=== PATIENT | female | born 1940 | race Caucasian/White ===

== ENCOUNTER → 2016-10-07 | Day surgery (SDC) | payer MEDICARE, OTHER ==
[~2016-10-07] MED LIST: LIDOCAINE 2% VISCOUS 15 ML UDC ONE; LIDOCAINE 2% VISCOUS 15 ML UDC PO ONE; MIDAZOLAM 2 MG/2 ML (VERSED) VIAL IM ONE; MIDAZOLAM 2 MG/2 ML (VERSED) VIAL ONE; NS IV 1000 ML 1,000 ML IV SCH; NS IV 1000 ML 1,000 ML ONE; fentaNYL INJECTION 100 MCG/2 ML AMP IVP ONE; fentaNYL INJECTION 100 MCG/2 ML AMP ONE
[2016-10-07 09:41] LABS: MEAN PLATELET VOLUME 12.4 FL (7.4-10.4); RED BLOOD COUNT 4.95 10^6/uL (4.35-5.85); WHITE BLOOD COUNT 5.1 10^3/uL (4.3-11.0)
--- NOTE | 2016-10-07 09:45 | Diagnostic Imaging Report ---
INDICATION: Preoperative esophageal echo. TECHNIQUE: A frontal chest was obtained at 0938 hours. COMPARISON: 02/21/2016. FINDINGS: The heart is mildly enlarged. The mediastinal silhouette is unremarkable. The lungs are clear. There has been resolution of the previous right perihilar infiltrate visualized on 02/21/2016. IMPRESSION: Mild cardiomegaly. No acute process in the chest. Resolution of the previous infiltrate in the right perihilar region. Dictated by: Dictated on workstation # [id number]
[2016-10-07 09:52] LABS: INR 0.9 (0.8-1.4)
--- NOTE | 2016-10-07 09:58 | Cardiac Procedure Note-CS/ASA ---
Pre-Procedure Note Pre-Op Procedure Note H&P Reviewed The H&P was reviewed, patient examined and no changes noted. Date H&P Reviewed: October 07, 2016 Time H&P Reviewed: 09:57 Conscious Sedation Pre-Proced Time Reviewed: 09:58 ASA Class: 3 Airway Mallampati Classification: (red cliff appropriate class) I. II. III, IV Lungs Heart ASA score ASA 1: a normal healthy patient ASA 2: a patient with a mild systemic disease (mid diabetes, controlled hypertension, obesity x ASA 3: a patient with a severe systemic disease that limits activity (angina , COPD, prior Myocardial infarction) ASA 4: a patient with an incapacitating disease that is a constant threat to life (CHF, renal failure) ASA 5: a moribund patient not expected to survive 24 hrs. (ruptured aneurysm) ASA 6: a declared brain patient whose organs are being harvested. For emergent operations, add the letter E after the classification Grade 3 Sedation Plan: Analgesia, Amnesia, Plan communicated to team members, Discussed options with patient/fam, Discussed risks with patient/fam Note The patient is an appropriate candidate to undergo the planned procedure, sedation, and anesthesia. The patient immediately re-assessed prior to indication. ROSAS LAW MD October 07, 2016 09:58
[2016-10-07 10:01] LABS: ALANINE AMINOTRANSFERASE 21 U/L (0-55); ANION GAP 9 MMOL/L (5-14); ASPARTATE AMINO TRANSFERASE 24 U/L (5-34); BILIRUBIN,TOTAL 0.5 MG/DL (0.1-1.0); BLOOD UREA NITROGEN 11 MG/DL (7-18); BUN/CREATININE RATIO 15; CALCIUM 9.6 MG/DL (8.5-10.1); CARBON DIOXIDE 28 MMOL/L (21-32); CHLORIDE 103 MMOL/L (98-107); CREATININE SERUM 0.74 MG/DL (0.60-1.30); GFR ESTIMATED > 60; GLUCOSE 97 MG/DL (70-105); SODIUM 140 MMOL/L (135-145); TOTAL PROTEIN 7.4 G/DL (6.4-8.2)
[2016-10-07 10:24] VITALS: BP 130/99
[2016-10-07 10:46] VITALS: BP 150/63
[2016-10-07 10:51] VITALS: BP 140/72
[2016-10-07 11:45] VITALS: BP 135/86
--- NOTE | 2016-10-07 19:50 | DISCHARGE SUMMARY ---
DATE OF SERVICE: 10/07/2016 BRIEF HISTORY OF PRESENT ILLNESS: The patient is a 76-year-old lady with a history of mitral valve stenosis. She has been seeing Dr. Flowers and Dr. Lopez. She was referred for AMEE evaluation. She denied any chest pain or shortness of breath, denied any palpitation, pedal edema. Past medical history, physical examination, social history and family history were discussed in her history and physical exam. PROCEDURE NOTE: After I explained the procedure to the patient, all pros and cons were explained, all questions were answered. The patient signed the consent. Then she was placed in the left lateral decubitus position. Oropharynx was anesthetized using lidocaine. Conscious sedation achieved using Versed and fentanyl. Omniplane probe was introduced through the mouth to the esophagus, then to the stomach. Multiple views were obtained. At the end of the procedure, Omniplane probe was removed. No complication noted. FINDINGS: 1. The left ventricle is normal in size with normal contractility, estimated ejection fraction 60%. 2. The left atrium is dilated. Left atrial appendage is dilated. No clots or thrombus were seen. 3. The right atrium and right ventricle are normal in size. No clots or thrombus were seen. 4. Interatrial septum was evaluated using color Doppler flow and agitated saline. No shunt was noted. 5. Mitral valve is normal in morphology. Mild to moderate mitral regurgitation was noted. Doppler across the mitral valve estimated the valve area by pressure half-time to be 2.3 sq cm, which is mild aortic and mild mitral valve stenoses. 6. Aortic valve is trileaflet with normal opening and closing pattern. No significant aortic stenosis or regurgitation was seen. 7. Tricuspid valve is normal in morphology with mild tricuspid regurgitation noted by color Doppler flow. 8. Pulmonic valve is functioning normally. 9. Portion of the main pulmonary artery and pulmonary artery bifurcation appeared normal. 10. Aortic root portion of the aortic arch and descending aorta appeared normal. CONCLUSIONS: 1. Mild mitral valve stenosis. 2. Dilated left atrium and left atrial appendage. 3. Normal left ventricular size and systolic function, estimated ejection fraction 60%. DISCUSSION AND RECOMMENDATIONS: The patient will be monitored, then discharged home, follow up with her primary electromedical equipment technician. FINAL DIAGNOSES: 1. Mitral valve stenosis. 2. Hyperlipidemia. 3. Hypertension. Job ID: [id number] DocumentID: [id number] Dictated Date: 10/07/2016 10:44:44 Fire Behavior Analyst Date: 10/07/2016 19:50:00 Dictated By: ROSAS LAW MD
--- NOTE | 2016-10-08 08:13 | ECHOCARDIOGRAPHY REPORT ---
DATE OF SERVICE: 10/07/2016 PROCEDURE: TRANSESOPHAGEAL ECHOCARDIOGRAM BRIEF HISTORY OF PRESENT ILLNESS: The patient is a 76-year-old lady with a history of mitral valve stenosis. She has been seeing Dr. Flowers and Dr. Lopez. She was referred for AMEE evaluation. She denied any chest pain or shortness of breath. Denied any palpitation, pedal edema. Past medical history, physical examination, social history and family history were discussed in her history and physical exam. PROCEDURE NOTE: After I explained the procedure to the patient, all pros and cons were explained, all questions were answered. The patient signed the consent. Then she was placed in the left lateral decubitus position. Oropharynx was anesthetized using lidocaine. Conscious sedation achieved using Versed and fentanyl. Omniplane probe was introduced through the mouth to the esophagus, then to the stomach. Multiple views were obtained. At the end of the procedure, Omniplane probe was removed. No complication noted. FINDINGS: 1. The left ventricle is normal in size with normal contractility, estimated ejection fraction 60%. 2. The left atrium is dilated. Left atrial appendage is dilated. No clots or thrombus were seen. 3. The right atrium and right ventricle are normal in size. No clots or thrombus were seen. 4. Interatrial septum was evaluated using color Doppler flow and agitated saline. No shunt was noted. 5. Mitral valve is normal in morphology. Mild to moderate mitral regurgitation was noted. Doppler across the mitral valve estimated the valve area by pressure half-time to be 2.3 sq cm, which is mild aortic and mild mitral valve stenosis. 6. Aortic valve is trileaflet with normal opening and closing pattern. No significant aortic stenosis or regurgitation was seen. 7. Tricuspid valve is normal in morphology with mild tricuspid regurgitation noted by color Doppler flow. 8. Pulmonic valve is functioning normally. 9. Portion of the main pulmonary artery and pulmonary artery bifurcation appeared normal. 10. Aortic root, portion of the aortic arch and descending aorta appeared normal. CONCLUSIONS: 1. Mild mitral valve stenosis. 2. Dilated left atrium and left atrial appendage. 3. Normal left ventricular size and systolic function, estimated ejection fraction 60%. DISCUSSION AND RECOMMENDATIONS: The patient will be monitored, then discharge home. Follow up with her primary incident response specialist. Job ID: [id number] DocumentID: [id number] Dictated Date: 10/07/2016 10:44:44 Drying Room Supervisor Date: 10/07/2016 19:45:20 Dictated By: ROSAS LAW MD
== END ==
LOC: CATH 08:38
PROVIDERS: ATTEND Internal Medicine Cardiovascular Disease
DX: I34.2 Nonrheumatic mitral (valve) stenosis (principal); E78.5 Hyperlipidemia, unspecified; I10 Essential (primary) hypertension; Z79.899 Other long term (current) drug therapy
CPT/HCPCS: 36415; 71010; 80053; 85027; 85610; 85730; 87081; 93312; 93320; 93325

== ENCOUNTER → 2017-04-21 | Outpatient (CLI) | payer MEDICARE, OTHER ==
--- NOTE | 2017-04-21 12:14 | Diagnostic Imaging Report ---
PROCEDURE: US left lower extremity venous. TECHNIQUE: Multiple real-time grayscale images were obtained over the left lower extremity in various projections. Additional duplex Doppler and color Doppler images were also obtained. INDICATION: Left leg pain. The left lower extremity femoral popliteal deep venous system is widely patent. No deep or superficial thrombus. A thin elongated Caal's cyst measures a length of 3.4 cm with an AP depth of only 6 mm. No other mass or fluid collection. IMPRESSION: Negative for venous thrombus. Small Caal's cyst in the popliteal fossa. Dictated by: Dictated on workstation # [id number]
== END ==
LOC: RAD 11:12
PROVIDERS: ATTEND Nurse Practitioner Family
DX: M71.22 Synovial cyst of popliteal space [Baker], left knee (principal)

== ENCOUNTER 2018-08-18 12:13 | Inpatient (IN) | payer MEDICARE, OTHER ==
[2018-08-18] VITALS (16 sets, daily range): BP systolic 82–131; BP diastolic 45–100
[~2018-08-18] VITALS: Ht 152.4 cm; Wt 51.0 kg
[2018-08-18] MEDS ORDERED: NS IV 1000 ML 1,000 ML ONE (12:31)
[2018-08-18] MEDS ORDERED: DILTIAZEM 180 MG (CARDIZEM CD) CAP PO ONE (13:00)
[2018-08-18] MEDS ORDERED: NS IV 1000 ML 1,000 ML IV SCH (13:00)
--- NOTE | 2018-08-18 13:00 | NUR ---
RORY JUDGE SPOKE WITH ALEISHA WELSH AT THIS APPROXIMATE TIME TO REPORT FINDINGS OF EKG AND CMP RESULTS. FAXED OVER EKG AND CMP RESULTS TO DR. WINTERS'S OFFICE AT THIS APPROXIMATE TIME. Addendum: 08/18/18 at 1728 by MARI BHATIA RN OMAR SOLOMON APRN*
[2018-08-18 13:02] LABS: ALANINE AMINOTRANSFERASE 20 U/L (0-55); ALBUMIN 3.9 GM/DL (3.2-4.5); ALKALINE PHOSPHATASE 95 U/L (40-136); BILIRUBIN,TOTAL 0.4 MG/DL (0.1-1.0); BUN/CREATININE RATIO 24; CALCIUM 9.8 MG/DL (8.5-10.1); CARBON DIOXIDE 27 MMOL/L (21-32); CHLORIDE 101 MMOL/L (98-107); CREATININE SERUM 0.75 MG/DL (0.60-1.30); GFR ESTIMATED > 60; GLUCOSE 132 MG/DL (70-105); POTASSIUM 5.2 MMOL/L (3.6-5.0); SODIUM 136 MMOL/L (135-145); TOTAL PROTEIN 7.6 GM/DL (6.4-8.2)
--- NOTE | 2018-08-18 15:00 | NUR ---
RECEIVED TELEPHONE ORDER FROM DR. WINTERS TO ADMIT PATIENT TO ICU, DR. WINTERS STATES SHE WILL FAX ADMISSION ORDERS TO ICU. TRANSPORTED PATIENT UP TO ROOM ICU-8 VIA WHEELCHAIR ACCOMPANIED BY PATIENT'S TWO ADULT SONS. THIS RN GOT THE PATIENT SITUATED INTO BED AND GOWN, HOOKED UP AEROPLANE PILOT, AND OBTAINED VITAL SIGNS. GAVE REPORT TO RORY DENT.
[2018-08-18 15:32] LABS: BASOPHILS % (AUTO) 0 % (0-10); EOSINOPHILS % (AUTO) 0 % (0-10); HEMATOCRIT 44 % (35-52); HEMOGLOBIN 14.3 G/DL (11.5-16.0); LYMPHOCYTES # (AUTO) 0.9 X 10^3 (1.0-4.0); LYMPHOCYTES % (AUTO) 10 % (12-44); MEAN CORPUSCULAR HEMOGLOBIN 29 PG (25-34); MEAN CORPUSCULAR HGB CONC 33 G/DL (32-36); MEAN CORPUSCULAR VOLUME 89 FL (80-99); MEAN PLATELET VOLUME 12.1 FL (7.4-10.4); MONOCYTES # (AUTO) 0.3 X 10^3 (0.0-1.0); MONOCYTES % (AUTO) 3 % (0-12); NEUTROPHILS % (AUTO) 87 % (42-75); PLATELET COUNT 235 10^3/uL (130-400); RED CELL DISTRIBUTION WIDTH 14.7 % (10.0-14.5); WHITE BLOOD COUNT 9.2 10^3/uL (4.3-11.0)
[2018-08-18] MEDS ORDERED: ADENOSINE 6 MG/2 ML (ADENOCARD) VIAL IV ONE (15:33)
[2018-08-18] MEDS ORDERED: DILTIAZEM 25 MG/5 ML INJ (CARDIZEM) VIAL ONE (15:47)
[2018-08-18] MEDS ORDERED: DILTIAZEM 125 MG/25 ML IV (CARDIZEM) IV ONE (15:47)
[2018-08-18] MEDS ORDERED: NS (IVPB) 0 ML ONE (15:48)
--- NOTE | 2018-08-18 15:49 | Consultation-Cardiology ---
HPI-Cardiology Cardiology Consultation Date of Consultation 08/18/18 Date of Admission Time Seen by Provider: 15:44 Indication: atrial fibrillation HPI 77 years old lady with history of mitral valve stenosis, has been followed by Dr. Soares in the past. Woke up this morning with palpitation, felt her heart racing, seen by Dr. Dela Cruz then she was admitted after she was noted to be in atrial fibrillation with rapid ventricular response. Denied any chest pain, has been having palpitation feeling lightheaded. Denied any previous history of atrial fibrillation. No syncope or near syncopal episode. Has history of carotid stenosis and carotid endarterectomy in the remote past Home Medications & Allergies Allergies: Coded Allergies: No Known Drug Allergies (Unverified , 10/07/16) Home Medication List Reviewed: Yes RZV-Ajmpph-Rughth Hx Patient Social History Employed/Student: retired Recent Foreign Travel: No Past Medical History as described below Family Medical History Family Medical Hx noncontributory to her current condition Review of Systems Constitutional: see HPI, malaise, weakness EENTM: see HPI, no symptoms reported Respiratory: see HPI; No cough; dyspnea on exertion; No hemoptysis, No orthopnea, No phlegm, No short of breath, No stridor, No wheezing, No other Cardiovascular: see HPI; No chest pain, No edema, No Hx of Intervention; palpitations; No syncope, No vascular heart diseas, No other Gastrointestinal: no symptoms reported, see HPI Genitourinary: no symptoms reported, see HPI Musculoskeletal: no symptoms reported, see HPI Skin: no symptoms reported, see HPI Psychiatric/Neurological: No Symptoms Reported, See HPI Reviewed Test Results Reviewed Test Results Lab Laboratory Tests Test 08/18/18 12:38 08/18/18 15:26 Range/Units Sodium Level 136 135-145 MMOL/L Potassium Level 5.2 H 3.6-5.0 MMOL/L Chloride Level 101 98-107 MMOL/L Carbon Dioxide Level 27 21-32 MMOL/L Anion Gap 8 5-14 MMOL/L Blood Urea Nitrogen 18 7-18 MG/DL Creatinine 0.75 0.60-1.30 MG/DL Estimat Glomerular Filtration Rate > 60 BUN/Creatinine Ratio 24 Glucose Level 132 H 70-105 MG/DL Calcium Level 9.8 8.5-10.1 MG/DL Corrected Calcium 9.9 8.5-10.1 MG/DL Total Bilirubin 0.4 0.1-1.0 MG/DL Aspartate Amino Transf (AST/SGOT) 24 5-34 U/L Alanine Aminotransferase (ALT/SGPT) 20 0-55 U/L Alkaline Phosphatase 95 40-136 U/L Total Protein 7.6 6.4-8.2 GM/DL Albumin 3.9 3.2-4.5 GM/DL White Blood Count 9.2 4.3-11.0 10^3/uL Red Blood Count 4.94 4.35-5.85 10^6/uL Hemoglobin 14.3 11.5-16.0 G/DL Hematocrit 44 35-52 % Mean Corpuscular Volume 89 80-99 FL Mean Corpuscular Hemoglobin 29 25-34 PG Mean Corpuscular Hemoglobin Concent 33 32-36 G/DL Red Cell Distribution Width 14.7 H 10.0-14.5 % Platelet Count 235 130-400 10^3/uL Mean Platelet Volume 12.1 H 7.4-10.4 FL Neutrophils (%) (Auto) 87 H 42-75 % Lymphocytes (%) (Auto) 10 L 12-44 % Monocytes (%) (Auto) 3 0-12 % Eosinophils (%) (Auto) 0 0-10 % Basophils (%) (Auto) 0 0-10 % Neutrophils # (Auto) 8.0 H 1.8-7.8 X 10^3 Lymphocytes # (Auto) 0.9 L 1.0-4.0 X 10^3 Monocytes # (Auto) 0.3 0.0-1.0 X 10^3 Eosinophils # (Auto) 0.0 0.0-0.3 10^3/uL Basophils # (Auto) 0.0 0.0-0.1 10^3/uL Physical Exam Vital Signs Capillary Refill : Height, Weight, BMI Height: '" Weight: lbs. oz. kg; BMI Method: General Appearance: No Apparent Distress, WD/WN Eyes: Bilateral Eye Normal Inspection, Bilateral Eye PERRL, Bilateral Eye EOMI HEENT: PERRL/EOMI, TMs Normal, Normal ENT Inspection, Pharynx Normal Neck: Full Range of Motion, Normal Inspection, Non Tender, Supple, Carotid Bruit Respiratory: Chest Non Tender, Lungs Clear, Normal Breath Sounds, No Accessory Muscle Use, No Respiratory Distress Cardiovascular: No Edema, No JVD, Normal Peripheral Pulses, Systolic Murmur, Gallop/S3, Irregularly Irregular, Tachycardia Gastrointestinal: Normal Bowel Sounds, No Organomegaly, No Pulsatile Mass, Non Tender, Soft Back: Normal Inspection, No CVA Tenderness, No Vertebral Tenderness Extremity: Normal Capillary Refill, Normal Inspection, Normal Range of Motion, Non Tender, No Calf Tenderness, No Pedal Edema Neurologic/Psychiatric: Alert, Oriented x3, No Motor/Sensory Deficits, Normal Mood/Affect Skin: Normal Color, Warm/Dry Lymphatic: No Adenopathy A/P-Cardiology Admission Diagnosis Acute atrial fibrillation Tachycardia Mitral valve stenosis Palpitation Assessment/Plan Atrial fibrillation without ventricular response, given Adenosine 6 mg which showed episode of transient bradycardia with underlying atrial fibrillation. Patient will be started on Cardizem and IV fluids with close monitoring to her heart rate. [id number] score of 4, yearly risk of stroke without oral anticoagulation is 4 percent, patient cannot be on NOAC due to mitral valve stenosis, will need loading dose on Coumadin and Lovenox. Mitral valve stenosis, had a AMEE done in 2016, I'll repeat 2-D echocardiogram Hypothyroidism, followed and managed by primary care physician Palpitation secondary to atrial fibrillation Tachycardia secondary to atrial fibrillation ROSAS LAW MD Aug 18, 2018 15:49
[2018-08-18 15:59] LABS: ALANINE AMINOTRANSFERASE 20 U/L (0-55); ALBUMIN 3.8 GM/DL (3.2-4.5); ALKALINE PHOSPHATASE 93 U/L (40-136); BILIRUBIN,TOTAL 0.5 MG/DL (0.1-1.0); BUN/CREATININE RATIO 20; CALCIUM 9.6 MG/DL (8.5-10.1); CARBON DIOXIDE 25 MMOL/L (21-32); CHLORIDE 107 MMOL/L (98-107); GFR ESTIMATED > 60; GLUCOSE 115 MG/DL (70-105); POTASSIUM 5.2 MMOL/L (3.6-5.0); SODIUM 140 MMOL/L (135-145); TOTAL PROTEIN 7.3 GM/DL (6.4-8.2)
[2018-08-18] MEDS ORDERED: DILTIAZEM 25 MG/5 ML INJ (CARDIZEM) VIAL IVP ONE (16:00)
[2018-08-18] MEDS ORDERED: DILTIAZEM INJECTION 125 MG in NS (IVPB) 100 ML IV SCH (16:00)
--- NOTE | 2018-08-18 16:00 | NUR ---
ASHLEE DURANT Christ admitted to room CU8-1, with an admitting diagnosis of afib/aflutter, on 08/18/18 from via wheelchair, accompanied by staff/family.ASHLEE DURANT introduced to surroundings, call light, bed controls, phone, TV, temperature control, lights, meal times, smoking policy, visitor policy, side rail policy, bathrooms and showers. Patient Rights given to patient in the handbook. ASHLEE DURANT verbalizes understanding that [facility] is not responsible for the loss or damage to any personal effects or valuables that are kept in the patients posession during their hospitalization. The following Patient Care Plans were discussed with the pt: Discharge Planning. ASHLEE DURANT verbalizes understanding of Interdisciplinary Patient Education. Patient and/or family were informed about the Rapid Response Team and its purpose.
[2018-08-18] MEDS ORDERED: OMEG-109 PO (16:20)
[2018-08-18] MEDS ORDERED: ASPI-983 PO (16:20)
[2018-08-18] MEDS ORDERED: UBID200C16 PO (16:20)
[2018-08-18] MEDS ORDERED: CRAN450C PO (16:20)
[2018-08-18] MEDS ORDERED: C,E,1CAP2 PO (16:20)
[2018-08-18] MEDS ORDERED: LEVO25TA5 PO (16:20)
--- NOTE | 2018-08-18 16:21 | NUR ---
SPOKE WITH THE PATIENT ABOUT HER MEDICATIONS. SHE LISTED WHAT SHE IS TAKING. I VERIFIED THE PRESCRIPTION MEDICATION WITH [facility]: 08-12-18 LEVOTHYROXINE 25MCG DAILY #90 OTC MEDS SHE IS TAKING: ASPIRIN 81MG HS CRANBERRY DAILY FISH OIL 2 DAILY EYE VITAMIN DAILY CO Q 10 DAILY THE LIST OF MEDICATION ON THE CHART FROM DR. WINTERS'S OFFICE ALSO INCLUDE: GREEN TEA PRN VITAMIN D CALCIUM MTV RESVERATROL B 12 SHE STATES SHE IS NOT TAKING ANY OF THESE CURRENTLY, SEVERAL OF HER OTC SUPPLEMENTS WERE STOPPED DUE TO HIGH POTASSIUM. SHE STATES SHE WAS TOLD SHE CAN TAKE PLAIN CALCIUM, HERS HAD MAGNESIUM IN IT TOO, BUT SHE HAS NOT PURCHASED ANY YET AND HAS NOT STARTED THAT. SHE BELIEVES THERE ARE 1 OR 2 OTHER SUPPLEMENTS SHE IS CURRENTLY TAKING BUT SHE IS UNABLE TO THINK OF THEM AT THIS TIME.
--- NOTE | 2018-08-18 16:45 | NUR ---
1510- RECEIVED REPORT FROM MARI VALADEZ. PT. WAS ALREADY PLACED IN CU8 AND PLACED ON MONITOR. REPORT RECEIVED STATED PT. HAD BEEN TO DR. WINTERS'S OFFICE @1226 AND [facility] WAS BEATING FAST. VIANEY SEND PT. FOR OUTPATIENT HYDRATION. PT. WAS GIVEN 1000ML OF NS ET 180 MG PO CARDIZEM. PT. STILL IN AFIB/AFLUTTER. PT. IS A&O X4. 20 G HL TO L-AC NOTED.MONITOR SHOWED AFIB. PT. DENIES NEEDS AT THIS TIME. 1520 DR. LAW HERE TO SEE PT. ORDERS RECEIVED ADENOSINE 6MG IVP. EKG COMPLETED AND SHOWN TO JOINT FILLER. ADENOSINE GIVEN BY KLEVER VALADEZ WITH THIS RN, DR. LAW, ET CUT OUT STITCHER AT BEDSIDE. SEE EKG FOR RHYTHM CHANGE. 1545 REPORT GIVEN TO SHANE VALADEZ
--- NOTE | 2018-08-18 17:12 | History & Physicial ---
History of Present Illness History of Present Illness Date of Admission Aug 18, 2018 at 15:00 I consulted on this patient on 08/18/18 17:11 Attending Physician Barry Dela Cruz MD Admitting Physician Barry Dela Cruz MD Consult Allergies and Home Medications Allergies Coded Allergies: No Known Drug Allergies (Unverified , 10/07/16) Home Medications Aspirin 81 Mg Tablet.dr, 81 MG PO HS, (Reported) C,E,Zinc,Copper 24/Om3/Lut/Raymond 1 Each Capsule, 1 CAP PO DAILY, (Reported) Cranberry Fruit Concentrate 450 Mg Capsule, 450 MG PO DAILY, (Reported) Levothyroxine Sodium 25 Mcg Tablet, 25 MCG PO DAILY, (Reported) [place]-3 Fatty Acids/Fish Oil 1 Each Capsule, 2 CAP PO DAILY, (Reported) Ubidecarenone 200 Mg Capsule, 200 MG PO DAILY, (Reported) Past Zimbnlf-Lpnrmk-Ljfdyw Hx Patient Social History Employed/Student: retired Alcohol Use: Denies Use Recreational Drug Use: No Physical Abuse Screen: No Sexual Abuse: No Recent Foreign Travel: No Contact w/other who traveled: No Recent Hopitalizations: No Recent Infectious Disease Expo: No Immunizations Up To Date Date of Influenza Vaccine: Mar 09, 2018 Seasonal Allergies Seasonal Allergies: No Surgeries Yes Respiratory No Cardiovascular Yes (Afib/Aflutter 08/18/18) Neurological No Genitourinary No Gastrointestinal No Musculoskeletal No Endocrine History of Endocrine Disorders: Yes HEENT History of HEENT Disorders: No Cancer No Psychosocial History of Psychiatric Problem: No Integumentary History of Skin or Integumenta: No Blood Transfusions History of Blood Disorders: No Physical Exam Vital Signs Vital Signs - First Documented 08/18/18 12:20 Pulse 163 Resp 20 B/P (MAP) 110/58 Pulse Ox 100 O2 Delivery Room Air Capillary Refill : Less Than 3 Seconds Height, Weight, BMI Height: 5'0.00" Weight: 108lbs. 0.0oz. [id number]; 21.1 BMI Method: Assessment/Plan Assessment and Plan ATRIAL FIBRILLATION CAROTID ARTERY DISEASE HYPOTHYROIDISM Admission Diagnosis Admission Status: Inpatient Order (span 2 midnights) Clinical Quality Measures DVT/VTE Risk/Contraindication: Risk Factor Score Per Nursin RFS Level Per Nursing on Admit: 2=Moderate BARRY DELA CRUZ MD Aug 18, 2018 17:12
[2018-08-18] MEDS ORDERED: warFARin 5 MG (COUMADIN) TAB PO SCH (18:00)
[2018-08-18] MEDS: ENOXAPARIN 60 MG/0.6 ML (LOVENOX) SYR SC SCH (18:01)
[2018-08-18] MEDS: NS IV 1000 ML 1,000 ML IV SCH (19:51)
[2018-08-18] MEDS ORDERED: ENOXAPARIN 60 MG/0.6 ML (LOVENOX) SYR SC SCH (21:00)
[2018-08-19] VITALS (11 sets, daily range): BP systolic 97–126; BP diastolic 44–64
[2018-08-19] MEDS: NS IV 1000 ML 1,000 ML IV SCH (01:36)
[2018-08-19 04:20] LABS: HEMOGLOBIN 11.6 G/DL (11.5-16.0); MEAN PLATELET VOLUME 12.8 FL (7.4-10.4); RED CELL DISTRIBUTION WIDTH 14.6 % (10.0-14.5); WHITE BLOOD COUNT 4.8 10^3/uL (4.3-11.0)
[2018-08-19 04:33] LABS: INR 1.1 (0.8-1.4); PROTHROMBIN TIME PATIENT 14.2 SEC (12.2-14.7)
[2018-08-19 04:43] LABS: ALANINE AMINOTRANSFERASE 16 U/L (0-55); ALKALINE PHOSPHATASE 63 U/L (40-136); BILIRUBIN,TOTAL 0.4 MG/DL (0.1-1.0); BUN/CREATININE RATIO 20; CALCIUM 8.3 MG/DL (8.5-10.1); CARBON DIOXIDE 21 MMOL/L (21-32); CHLORIDE 111 MMOL/L (98-107); CREATININE SERUM 0.59 MG/DL (0.60-1.30); GFR ESTIMATED > 60; GLUCOSE 92 MG/DL (70-105); POTASSIUM 4.1 MMOL/L (3.6-5.0); SODIUM 141 MMOL/L (135-145); TOTAL PROTEIN 5.7 GM/DL (6.4-8.2)
[2018-08-19] MEDS: ENOXAPARIN 60 MG/0.6 ML (LOVENOX) SYR SC SCH (06:14)
--- NOTE | 2018-08-19 07:18 | Cardiology Progress Note ---
Subjective Date Seen by Provider: Aug 19, 2018 Time Seen by Provider: 07:15 Subjective/Events-last exam patient is in bed, feeling better. No new complaint. No chest pain. No palpitation. Converted back to sinus rhythm last night Review of Systems General: No Chills, No Night Sweats, No Fatigue, No Malaise, No Appetite, No Other HEENT: No Head Aches, No Visual Changes, No Eye Pain, No Ear Pain, No Dysphasia , No Sinus Congestion, No Post Nasal Drip, No Sore Throat, No Other Pulmonary: No Dyspnea, No Cough, No Pleuritic Chest Pain, No Other Cardiovascular: No: Chest Pain, Palpitations, Orthopnea, Paroxysmal Noc. Dyspnea, Edema, Lt Headedness, Other Objective-Cardiology Exam Last Set of Vital Signs Vital Signs 08/19/18 08/19/18 03:35 08:00 Temp 98.5 Pulse 64 Resp 12 B/P (MAP) 112/51 (71) Pulse Ox 99 O2 Delivery Room Air Capillary Refill : Less Than 3 Seconds I&O Intake and Output 08/19/18 00:00 Intake Total 1375 ml Output Total 950 ml Balance 425 ml Intake Oral 375 ml IV Total 1000 ml Output Urine Total 950 ml Daily Weight Change No General: Alert, Oriented X3, Cooperative HEENT: Atraumatic, PERRLA Neck: Supple, No JVD, No Thyromegaly Lungs: Clear to Auscultation, Normal Air Movement Heart: Regular Rate, Normal S1, Normal S2, Other (systolic murmur) Abdomen: Normal Bowel Sounds, Soft, No Tenderness, No Hepatosplenomegaly, No Masses Extremities: No Clubbing, No Cyanosis, No Edema, Normal Pulses, No Tenderness/ Swelling Skin: No Rashes, No Breakdown, No Significant Lesion Neuro: Normal Gait, Normal Speech, Strength at 5/5 X4 Ext, Normal Tone, Sensation Intact Psych/Mental Status: Mental Status NL, Mood NL Results Lab Laboratory Tests 08/18/18 12:38 08/18/18 15:26 08/19/18 03:45 A/P-Cardiology Admission Diagnosis Acute atrial fibrillation Tachycardia Mitral valve stenosis Palpitation Assessment/Plan Paroxysmal atrial fibrillation, echo showed large left atrium, she is known to have mitral valve stenosis, did not show significant stenosis on the echo while she was tachycardic with a heart rate 140. I will repeat echo now and reevaluate the mitral valve area. Start amiodarone and low-dose beta blockers and evaluate tolerance and response [id number] score of 4, yearly risk of stroke without oral anticoagulation is 4 percent, patient cannot be on NOAC due to mitral valve stenosis, will need loading dose on Coumadin and Lovenox, patient is requesting to use medication other than Coumadin. I will reevaluate 2-D echo prior to switch her to another medication Mitral valve stenosis, had a AMEE done in 2017, I'll repeat 2-D echocardiogram today to reevaluate the mitral valve area while heart rate is better controlled Hypothyroidism, followed and managed by primary care physician Palpitation secondary to atrial fibrillation, better at this time Tachycardia secondary to atrial fibrillation, better at this time Addendum on August 19, 2018 at 9 a.m. Patient was noted to have moderate mitral valve stenosis with valve area of 1.6 cm, left atrial enlargement measuring 4.8 cm. It is considered valvular atrial fibrillation she will be on Coumadin and Lovenox. Monitor INR closely. Started on amiodarone and low-dose beta blockers. We'll monitor. Discussed with Dr. Dela Cruz and patient will be discharged today Clinical Quality Measures DVT/VTE Risk/Contraindication: Risk Factor Score Per Nursin RFS Level Per Nursing on Admit: 2=Moderate ROSAS LAW MD Aug 19, 2018 07:18
[2018-08-19] MEDS ORDERED: AMIODARONE FOR BOLUS 150 MG in D5W 100 ML IVPB 100 ML IV NR (07:25)
[2018-08-19] MEDS ORDERED: METO-387 PO (08:19)
--- NOTE | 2018-08-19 08:31 | Discharge Inst-Simple/Standard ---
Discharge Inst-Standard Discharge Medications New, Converted or Re-Newed RX: Transmitted to Pharmacy Patient Instructions/Follow Up Plan of Care/Instructions/FU: appt with [facility] - both doctors in one week from discharge. get labs done on wednesday per dr. barney's instructions. if you have questions about when/where to have labs - call dr. lawler or ector's office on wednesday morning. take ALL medication as directed Activity as Tolerated: Yes Discharge Diet: Regular Diet Return to The Hospital For: any concern for lifethreatening illness, injury, uncontrolled heart rate, bleeding that is excessive, chest pain, shortness of breath, GI bleeding. Planned Outpatient Orders/Ref. Pneu Vac Indicated: Yes BARRY LAWLER MD Aug 19, 2018 08:31
[2018-08-19] MEDS ORDERED: AMIODARONE 200 MG (CORDARONE) TAB PO SCH (09:00)
[2018-08-19] MEDS ORDERED: WARF4TAB PO (09:04)
[2018-08-19] MEDS ORDERED: ENOX80DI12 SQ (09:04)
[2018-08-19] MEDS ORDERED: AMIO200T4 PO (09:04)
[2018-08-19] MEDS ORDERED: ENOXAPARIN 30 MG/0.3 ML (LOVENOX) SYR SC ONE (09:30)
--- NOTE | 2018-08-19 10:09 | Discharge Summary ---
Diagnosis/Chief Complaint Date of Admission Aug 18, 2018 at 15:00 Date of Discharge Discharge Date: Aug 19, 2018 Discharge Time: 1200 Discharge Summary Discharge Physical Examination Allergies: Coded Allergies: No Known Drug Allergies (Unverified , 10/07/16) Vitals & I&Os Vital Signs Date Time Temp Pulse Resp B/P (MAP) Pulse Ox O2 Delivery O2 Flow Rate FiO2 08/19/18 09:00 61 48 126/46 (72) Room Air 08/19/18 08:00 99 08/19/18 03:35 98.5 General Appearance: Alert, Oriented X3, Cooperative HEENT: Atraumatic, PERRLA Respiratory: Clear to Auscultation, Normal Air Movement Cardiovascular: Regular Rate, Normal S1, Normal S2, Other (systolic murmur) Abdominal: Normal Bowel Sounds, Soft, No Tenderness, No Hepatosplenomegaly, No Masses Extremities: No Clubbing, No Cyanosis, No Edema, Normal Pulses, No Tenderness/ Swelling Skin: No Rashes, No Breakdown, No Significant Lesion Neuro: Normal Gait, Normal Speech, Strength at 5/5 X4 Ext, Normal Tone, Sensation Intact Psych/Mental Status: Mental Status NL, Mood NL Hospital Course Pending Labs Laboratory Tests 08/19/18 03:45: White Blood Count 4.8, Red Blood Count 4.03, Hemoglobin 11.6, Hematocrit 36, Mean Corpuscular Volume 90, Mean Corpuscular Hemoglobin 29, Mean Corpuscular Hemoglobin Concent 32, Red Cell Distribution Width 14.6, Platelet Count 188, Mean Platelet Volume 12.8, Prothrombin Time 14.2, INR Comment 1.1, Sodium Level 141, Potassium Level 4.1, Chloride Level 111, Carbon Dioxide Level 21, Anion Gap 9, Blood Urea Nitrogen 12, Creatinine 0.59, Estimat Glomerular Filtration Rate > 60, BUN/Creatinine Ratio 20, Glucose Level 92, Calcium Level 8.3, Corrected Calcium 9.1, Total Bilirubin 0.4, Aspartate Amino Transf (AST/SGOT) 19 , Alanine Aminotransferase (ALT/SGPT) 16, Alkaline Phosphatase 63, Total Protein 5.7, Albumin 3.0 Discharge Instructions to patient/family Please see electronic discharge instructions given to patient. Discharge Medications Reviewed and agree with Discharge Medication list on patient's Discharge Instruction sheet Clinical Quality Measures DVT/VTE Risk/Contraindication: Risk Factor Score Per Nursin RFS Level Per Nursing on Admit: 2=Moderate BARRY WINTERS MD Aug 19, 2018 10:09
== END 2018-08-19 10:52 | disposition home or self-care (01) | DRG 310 ==
LOC: SDC 12:13 → ICU 15:00
PROVIDERS: ADMIT Family Medicine; ATTEND Family Medicine
DX: I48.0 Paroxysmal atrial fibrillation (principal); I34.0 Nonrheumatic mitral (valve) insufficiency; I25.10 Atherosclerotic heart disease of native coronary artery without angina pectoris; E03.9 Hypothyroidism, unspecified
CPT/HCPCS: 36415; 80053; 84484; 85025; 85027; 85610; 85730; 87081; 93005; 93306; 93308

== ENCOUNTER → 2018-11-09 | Outpatient (CLI) | payer MEDICARE, OTHER ==
[~2018-11-09] VITALS: Ht 152.4 cm; Wt 50.3 kg
[~2018-11-09] MED LIST changes: +AMIO200T4 PO; +ASPI-983 PO; +C,E,1CAP2 PO; +CATHETER FLUSH 10 ML SYR IV PRN; +CRAN450C PO; +ENOX80DI12 SQ; +LEVO25TA5 PO; -LIDOCAINE 2% VISCOUS 15 ML UDC ONE; -LIDOCAINE 2% VISCOUS 15 ML UDC PO ONE; +METO-387 PO; -MIDAZOLAM 2 MG/2 ML (VERSED) VIAL IM ONE; -MIDAZOLAM 2 MG/2 ML (VERSED) VIAL ONE; -NS IV 1000 ML 1,000 ML IV SCH; -NS IV 1000 ML 1,000 ML ONE; +OMEG-109 PO; +REGADENOSON 0.4 MG/5 ML SYR (LEXISCAN) IV ONE; +UBID200C16 PO; +WARF4TAB PO; -fentaNYL INJECTION 100 MCG/2 ML AMP IVP ONE; -fentaNYL INJECTION 100 MCG/2 ML AMP ONE
--- NOTE | 2018-11-09 14:58 | STRESS TEST ---
DATE OF SERVICE: 11/09/2018 LEXISCAN MYOVIEW STRESS TEST REPORT REFERRING PHYSICIAN: Hyacinth Dela Cruz MD. Baseline heart rate is 62, baseline blood pressure 165/56. Baseline EKG is sinus rhythm with no ischemic changes. In summary, the patient was injected with 10.18 mCi of technetium-99 Myoview and the resting images were obtained. Then, the patient received 0.4 mg of Lexiscan followed by 29.5 mCi of technetium-99 Myoview. Throughout the test, there were no EKG changes. The resting and stress images were reviewed and compared in the short axis, horizontal long axis, and vertical long axis views. Review of the images showed good radiotracer uptake with no significant ischemia or infarction. SSS is 1, SDS 1, TID value 1.04. On the gated images, the left ventricle appeared to be normal size with normal contractility. Calculated ejection fraction is 68%. CONCLUSION: 1. The patient tolerated Lexiscan well. 2. No significant ischemia or infarction on SPECT images. 3. Normal left ventricular size with normal contractility. Calculated ejection fraction is 68%. Job ID: [id number] DocumentID: [id number] Dictated Date: 11/09/2018 14:34:10 Creative Producer Date: 11/09/2018 14:57:17 Dictated By: ROSAS LAW MD
== END ==
LOC: CARD 07:39
PROVIDERS: ATTEND Physician Assistant
DX: I48.2 Chronic atrial fibrillation (principal); I10 Essential (primary) hypertension; R00.2 Palpitations; I05.0 Rheumatic mitral stenosis; E03.9 Hypothyroidism, unspecified
CPT/HCPCS: 78452; 93017

== ENCOUNTER 2020-01-05 20:37 | Inpatient (IN) | payer MEDICARE, OTHER ==
[~2020-01-05] VITALS: Ht 152.4 cm; Wt 50.3 kg
[~2020-01-05 20:37] MED LIST changes: -CATHETER FLUSH 10 ML SYR IV PRN; -METO-387 PO; +MTP25TSR PO; -REGADENOSON 0.4 MG/5 ML SYR (LEXISCAN) IV ONE
[2020-01-05] MEDS ORDERED: dilTIAZem DRIP PRE-MIX 125 ML IV ONE (20:58)
[2020-01-05] MEDS ORDERED: NS IV 1000 ML 1,000 ML ONE (20:59)
[2020-01-05] MEDS ORDERED: NS IV 1000 ML 1,000 ML IV SCH (21:01)
[2020-01-05] MEDS: dilTIAZem DRIP PRE-MIX 125 ML IV SCH (21:10)
[2020-01-05 21:40] LABS: BASOPHILS % (AUTO) 0 % (0-10); EOSINOPHILS # (AUTO) 0.1 10^3/uL (0.0-0.3); EOSINOPHILS % (AUTO) 1 % (0-10); HEMATOCRIT 37 % (35-52); LYMPHOCYTES # (AUTO) 2.3 X 10^3 (1.0-4.0); LYMPHOCYTES % (AUTO) 25 % (12-44); MEAN CORPUSCULAR HEMOGLOBIN 30 PG (25-34); MEAN CORPUSCULAR HGB CONC 33 G/DL (32-36); MEAN CORPUSCULAR VOLUME 92 FL (80-99); MEAN PLATELET VOLUME 13.3 FL (7.4-10.4); MONOCYTES # (AUTO) 0.9 X 10^3 (0.0-1.0); MONOCYTES % (AUTO) 10 % (0-12); NEUTROPHILS # (AUTO) 5.8 X 10^3 (1.8-7.8); NEUTROPHILS % (AUTO) 64 % (42-75); PLATELET COUNT 234 10^3/uL (130-400); RED CELL DISTRIBUTION WIDTH 14.6 % (10.0-14.5); WHITE BLOOD COUNT 9.1 10^3/uL (4.3-11.0)
[2020-01-05 21:43] LABS: ALBUMIN 3.9 GM/DL (3.2-4.5); CHLORIDE 100 MMOL/L (98-107); POTASSIUM 3.1 MMOL/L (3.6-5.0); SODIUM 137 MMOL/L (135-145)
[2020-01-05 21:44] LABS: CALCIUM 9.2 MG/DL (8.5-10.1)
[2020-01-05 21:45] LABS: GLUCOSE 146 MG/DL (70-105)
[2020-01-05 21:47] LABS: BILIRUBIN,TOTAL 0.4 MG/DL (0.1-1.0); CARBON DIOXIDE 23 MMOL/L (21-32)
[2020-01-05 21:49] LABS: ALKALINE PHOSPHATASE 173 U/L (40-136); CREATININE SERUM 1.33 MG/DL (0.60-1.30); GFR ESTIMATED 39
[2020-01-05 21:50] LABS: BUN/CREATININE RATIO 13
[2020-01-05 21:52] LABS: ALANINE AMINOTRANSFERASE 95 U/L (0-55); MAGNESIUM 1.6 MG/DL (1.6-2.4)
[2020-01-05 21:58] LABS: INR 1.2 (0.8-1.4); PROTHROMBIN TIME PATIENT 15.1 SEC (12.2-14.7)
[2020-01-05] MEDS ORDERED: LORazepam INJ 2 MG/ML (ATIVAN) VIAL IVP ONE (22:00)
--- NOTE | 2020-01-05 22:07 | Diagnostic Imaging Report ---
INDICATION: Chest pain. COMPARISON STUDY: Chest from 10/07/2016. FINDINGS: Frontal view of the chest demonstrates the heart size to have increased with development of mild congestion. A small right pleural effusion with adjacent atelectasis is present. IMPRESSION: Congestive heart failure. Dictated by: Dictated on workstation # [id number]
--- NOTE | 2020-01-05 22:13 | ED Cardiac General ---
History of Present Illness General Chief Complaint: Cardiac/General Problems Stated Complaint: HIGH HEART RATE / SWELLING IN FEET/LEGS Nursing Triage Note: FAST HEART RATE. STARTED TONIGHT. HAVING OFF AND ON THE PAST THREE WEEKS. CLEANER WINDOW IN [place] HAS BEEN CHANGING MEDICATIONS AROUND. INCREASE SWELLING IN BILATERAL LOWER EXTREMETIES. 2+ EDEMA BILATERALLY. PLACED ON MONITOR. PHYSICIAN CALLED TO ROOM. HEART RATE 181. Source: patient, old records Exam Limitations: no limitations History of Present Illness Date Seen by Provider: Jan 05, 2020 Time Seen by Provider: 20:54 Initial Comments This 79-year-old woman with history of atrial fibrillation presents to the emergency room with tachycardia of around 180 bpm. She noticed swelling of her legs yesterday and racing of her heart has been ongoing today. She is anticoagulated with a Eliquis 2.5 mg twice a day. She has had both doses today. She is not having chest pain but does feel little short of breath. She has had multiple medication changes recently in relation to rhythm control. 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 Malin but she has an appointment with Dr. Vazquez to establish cardiology care in [place]. Her primary care provider is Dr. Dela Cruz. Allergies and Home Medications Allergies Coded Allergies: No Known Drug Allergies (Unverified , 10/07/16) Home Medications Apixaban 2.5 Mg Tablet, 2.5 MG PO BID, (Reported) Cholecalciferol (Vitamin D3) 50 Mcg Capsule, 50 MCG PO HS, (Reported) Diltiazem HCl 120 Mg Cap.er.24h, 120 MG PO DAILY, (Reported) Furosemide 20 Mg Tablet, 20 MG PO NEEDED, (Reported) Levothyroxine Sodium 25 Mcg Tablet, 25 MCG PO DAILY, (Reported) [place]-3 Fatty Acids/Fish Oil 1 Each Capsule, 2 CAP PO DAILY, (Reported) [place]-3/Dha/Epa/Fish Oil 1 Each Capsule, 1 EACH PO HS, (Reported) Potassium Chloride 10 Meq Tab.er.prt, 10 MEQ PO NEEDED, (Reported) Patient Home Medication List Home Medication List Reviewed: Yes Review of Systems Review of Systems Constitutional: no symptoms reported EENTM: No Symptoms Reported Respiratory: See HPI Cardiovascular: See HPI Gastrointestinal: No Symptoms Reported Genitourinary: No Symptoms Reported Musculoskeletal: no symptoms reported Skin: no symptoms reported Psychiatric/Neurological: No Symptoms Reported Endocrine: No Symptoms Reported Hematologic/Lymphatic: No Symptoms Reported Past Omhqrmj-Kftkoj-Gmrgwe Hx Past Med/Social Hx: Reviewed Nursing Past Med/Soc Hx Patient Social History Alcohol Use: Denies Use Recreational Drug Use: No Smoking Status: Never a Smoker 2nd Hand Smoke Exposure: No Recent Foreign Travel: No Contact w/Someone Who Travel: No Recent Infectious Disease Expo: No Recent Hopitalizations: No Physical Abuse: No Sexual Abuse: No Mistreated: No Fear: No Immunizations Up To Date Date of Influenza Vaccine: Mar 09, 2018 Seasonal Allergies Seasonal Allergies: No Past Medical History Surgeries: Yes (NECK ) Respiratory: No Cardiac: Yes (Afib/Aflutter 08/18/18) Neurological: No Genitourinary: No Gastrointestinal: No Musculoskeletal: No Endocrine: Yes HEENT: No Cancer: No Psychosocial: No Integumentary: No Blood Disorders: No Family Medical History Hypertension Physical Exam Vital Signs Vital Signs - First Documented 01/05/20 01/05/20 20:48 21:38 Temp 37.2 Pulse 181 Resp 19 B/P (MAP) 157/112 (127) Pulse Ox 92 O2 Delivery Room Air O2 Flow Rate 2.00 Capillary Refill : Less Than 3 Seconds Height, Weight, BMI Height: 5'0.00" Weight: 111lbs. 0.0oz. 50.777684xl; 38386.00 BMI Method: General Appearance: No Apparent Distress, WD/WN HEENT: PERRL/EOMI, Normal ENT Inspection Neck: Full Range of Motion Respiratory: No Accessory Muscle Use, No Respiratory Distress, Crackles ( bibasilar) Cardiovascular: No Murmur, Irregularly Irregular, Tachycardia Gastrointestinal: Normal Bowel Sounds, Non Tender, Soft Extremity: Non Tender, Pedal Edema, Swelling Neurologic/Psychiatric: Alert, Oriented x3, No Motor/Sensory Deficits, Normal Mood/Affect, child watch attendant II-XII Norm as Tested Skin: Normal Color, Warm/Dry Progress/Results/Core Measures Results/Orders Lab Results Laboratory Tests Test 01/05/20 20:58 Range/Units White Blood Count 9.1 4.3-11.0 10^3/uL Red Blood Count 3.99 L 4.35-5.85 10^6/uL Hemoglobin 12.0 11.5-16.0 G/DL Hematocrit 37 35-52 % Mean Corpuscular Volume 92 80-99 FL Mean Corpuscular Hemoglobin 30 25-34 PG Mean Corpuscular Hemoglobin Concent 33 32-36 G/DL Red Cell Distribution Width 14.6 H 10.0-14.5 % Platelet Count 234 130-400 10^3/uL Mean Platelet Volume 13.3 H 7.4-10.4 FL Neutrophils (%) (Auto) 64 42-75 % Lymphocytes (%) (Auto) 25 12-44 % Monocytes (%) (Auto) 10 0-12 % Eosinophils (%) (Auto) 1 0-10 % Basophils (%) (Auto) 0 0-10 % Neutrophils # (Auto) 5.8 1.8-7.8 X 10^3 Lymphocytes # (Auto) 2.3 1.0-4.0 X 10^3 Monocytes # (Auto) 0.9 0.0-1.0 X 10^3 Eosinophils # (Auto) 0.1 0.0-0.3 10^3/uL Basophils # (Auto) 0.0 0.0-0.1 10^3/uL Prothrombin Time 15.1 H 12.2-14.7 SEC INR Comment 1.2 0.8-1.4 Activated Partial Thromboplast Time 31 24-35 SEC Sodium Level 137 135-145 MMOL/L Potassium Level 3.1 L 3.6-5.0 MMOL/L Chloride Level 100 98-107 MMOL/L Carbon Dioxide Level 23 21-32 MMOL/L Anion Gap 14 5-14 MMOL/L Blood Urea Nitrogen 17 7-18 MG/DL Creatinine 1.33 H 0.60-1.30 MG/DL Estimat Glomerular Filtration Rate 39 BUN/Creatinine Ratio 13 Glucose Level 146 H 70-105 MG/DL Calcium Level 9.2 8.5-10.1 MG/DL Corrected Calcium 9.3 8.5-10.1 MG/DL Magnesium Level 1.6 1.6-2.4 MG/DL Total Bilirubin 0.4 0.1-1.0 MG/DL Aspartate Amino Transf (AST/SGOT) 39 H 5-34 U/L Alanine Aminotransferase (ALT/SGPT) 95 H 0-55 U/L Alkaline Phosphatase 173 H 40-136 U/L Myoglobin 69.2 10.0-92.0 NG/ML Troponin I < 0.028 <0.028 NG/ML C-Reactive Protein High Sensitivity 2.17 H 0.00-0.50 MG/DL B-Type Natriuretic Peptide 395.1 H <100.0 PG/ML Total Protein 7.4 6.4-8.2 GM/DL Albumin 3.9 3.2-4.5 GM/DL Thyroid Stimulating Hormone (TSH) 3.04 0.35-4.94 UIU/ML Free Thyroxine 1.29 0.70-1.48 NG/DL My Orders Orders - ROMEO HERNANDEZ MD Cbc With Automated Diff (01/05/20:41) Magnesium (01/05/20:41) Chest 1 View, Ap/Pa Only (01/05/20:) Ekg Tracing (01/05/20:) Comprehensive Metabolic Panel (01/05/20:) Myoglobin Serum (01/05/20:) Protime With Inr (01/05/20:) Partial Thromboplastin Time (01/05/20:) O2 (01/05/20:) Monitor-Rhythm Ecg Trace Only (01/05/20:) Ed Iv/Invasive Line Start (01/05/20 20:41) BNP (01/05/20 20:41) Ns Iv 1000 Ml (Sodium Chloride 0.9%) (01/05/20 21:01) Diltiazem Drip Pre-Mix (Cardizem Drip Pr (01/05/20 21:15) Diltiazem Drip Pre-Mix (Cardizem Drip Pr (01/05/20 20:58) Ns Iv 1000 Ml (Sodium Chloride 0.9%) (01/05/20 20:59) Free T4 (Free Thyroxine) (01/05/20 20:58) Troponin I (01/05/20 20:58) Thyroid Stimulating Hormone (01/05/20 20:58) Lorazepam Injection (Ativan Injection) (01/05/20 22:00) Hs C Reactive Protein (01/05/20 20:58) Furosemide Injection (Lasix Injection) (01/05/20 22:15) Potassium Cl 10meq/50ml Ivpb (Kcl 10 Meq (01/05/20 22:15) Amiodarone Injection (Cordarone Injectio (01/05/20 23:00) Amiodarone Injection (Cordarone Injectio (01/05/20 23:00) Medications Given in ED Current Medications Medications Dose Ordered Sig/Ivelisse Route Start Time Stop Time Status Last Admin Dose Admin Furosemide 40 mg ONCE ONCE IVP 01/05/20 22:15 01/05/20 22:16 DC 01/05/20 23:03 40 MG Lorazepam 0.25 mg ONCE ONCE IVP 01/05/20 22:00 01/05/20 22:01 DC 01/05/20 22:01 0.25 MG Potassium Chloride 50 ml @ 50 mls/hr ONCE ONCE IV 01/05/20 22:15 01/05/20 23:14 DC 01/05/20 23:11 50 MLS/HR Vital Signs/I&O 01/05/20 01/05/20 20:48 21:38 Temp 37.2 Pulse 181 Resp 19 B/P (MAP) 157/112 (127) Pulse Ox 92 O2 Delivery Room Air Nasal Cannula O2 Flow Rate 2.00 01/06/20 00:00 Intake Total 1000 ml Balance 1000 ml Blood Pressure Mean: 127 Progress Progress Note : Time: 23:40 Progress Note Patient was started on a Cardizem drip shortly after assessment. This did improve her heart rate but rate was rather erratic. Case was reviewed with Dr. Vazquez. He recommended giving an amiodarone bolus and is starting on amiodarone drip. He also requested an echocardiogram in the morning. We will continue Eliquis 2.5 mg twice a day. Patient showed some signs of congestion on the chest x-ray with a mildly elevated BNP. She also had some mild hypoxia requiring supplemental oxygen by nasal cannula. Lasix 40 mg IV was given to help manage this along with potassium 10 mEq by IV route. She will later receive potassium 40 mEq orally. Initial ECG Impression Date: Jan 05, 2020 Initial ECG Impression Time: 20:54 Initial ECG Rate: 172 Initial ECG Rhythm: A Fib/Flutter Initial ECG Impression: Atrial Fibrillation w/RVR Comment Atrial fibrillation with RVR. No ST elevation. Minimal ST depression. Repolarization abnormality suspected. Diagnostic Imaging Diagonstic Imaging: Xray Plain Films/CT/US/NM/MRI: chest Comments Chest x-ray viewed by me and report reviewed. See report below: NAME: ASHLEE DURANT [facility] REC#: [id number] PT STATUS: REG ER : 1940 PHYSICIAN: ROMEO HERNANDEZ MD ADMIT DATE: 01/05/20/ER Signed Date of Exam:01/05/20 CHEST 1 VIEW, AP/PA ONLY INDICATION: Chest pain. COMPARISON STUDY: Chest from 10/07/2016. FINDINGS: Frontal view of the chest demonstrates the heart size to have increased with development of mild congestion. A small right pleural effusion with adjacent atelectasis is present. IMPRESSION: Congestive heart failure. Dictated by: Dictated on workstation # [id number] Dict: 01/05/202203 Trans: 01/05/202206 [facility] [id number] Interpreted by: RADHA TARANGO MD Electronically signed by: RADHA TARANGO MD 01/05/202206 Departure Communication (Admissions) Time/Spoke to Admitting Phy: 22:55 Dr. Nicole Time/Spoke to Consulting Phy: 22:48 Dr. Vazquez Impression Primary Impression: Atrial fibrillation with RVR Additional Impressions: Hypokalemia Pulmonary congestion Hypoxia Disposition: ADMITTED INPATIENT Condition: Improved Admissions Decision to Admit Reason: Admit from ER (General) Decision to Admit/Date: Jan 05, 2020 Time/Decision to Admit Time: 21:00 Departure-Patient Inst. Referrals: BARRY DELA CRUZ MD (PCP/Family) Primary Care Physician ROMEO HERNANDEZ MD Jan 05, 2020 22:13
[2020-01-05 22:15] LABS: FREE T4 (FREE THYROXINE) 1.29 NG/DL (0.70-1.48)
[2020-01-05] MEDS ORDERED: FUROSEMIDE 40 MG/4 ML INJ (LASIX) IVP ONE (22:15)
[2020-01-05] MEDS ORDERED: POTASSIUM CL 10MEQ/50ML IVPB 50 ML IV ONE (22:15)
[2020-01-05 22:31] LABS: TOTAL PROTEIN 7.4 GM/DL (6.4-8.2)
[2020-01-05] MEDS ORDERED: AMIODARONE INJECTION 450 MG in D5W IV SOLUTION (EXCEL) 250 ML IV SCH (23:00)
[2020-01-05] MEDS ORDERED: AMIODARONE INJECTION 150 MG in D5W 100 ML IVPB 100 ML IV ONE (23:00)
[2020-01-05] MEDS ORDERED: AMIODARONE (OMNICELL DRIP KIT) 150 MG/3 ML IV ONE (23:13)
[2020-01-05] MEDS ORDERED: AMIODARONE 450 MG/9 ML (CORDARONE) VIAL IV ONE (23:13)
[2020-01-05] MEDS ORDERED: D5W 100 ML IVPB 100 ML IV ONE (23:15)
[2020-01-05] MEDS ORDERED: D5W IV SOLUTION (EXCEL) 250 ML IV ONE (23:22)
[2020-01-06] VITALS (20 sets, daily range): BP systolic 75–135; BP diastolic 57–78
[2020-01-06] MEDS ORDERED: AMIODARONE 450 MG/250 ML D5W EXCEL IV SCH ×2 (01:45)
[2020-01-06] MEDS ORDERED: KCL 20 MEQ TAB (K-DUR) PO ONE (01:45)
[2020-01-06 04:14] LABS: BASOPHILS % (AUTO) 0 % (0-10); EOSINOPHILS % (AUTO) 0 % (0-10); HEMATOCRIT 35 % (35-52); HEMOGLOBIN 11.3 G/DL (11.5-16.0); LYMPHOCYTES # (AUTO) 1.1 X 10^3 (1.0-4.0); LYMPHOCYTES % (AUTO) 14 % (12-44); MEAN CORPUSCULAR HEMOGLOBIN 30 PG (25-34); MEAN CORPUSCULAR HGB CONC 33 G/DL (32-36); MEAN CORPUSCULAR VOLUME 92 FL (80-99); MEAN PLATELET VOLUME 12.8 FL (7.4-10.4); MONOCYTES # (AUTO) 0.7 X 10^3 (0.0-1.0); MONOCYTES % (AUTO) 8 % (0-12); NEUTROPHILS # (AUTO) 6.3 X 10^3 (1.8-7.8); NEUTROPHILS % (AUTO) 78 % (42-75); PLATELET COUNT 188 10^3/uL (130-400); RED CELL DISTRIBUTION WIDTH 14.6 % (10.0-14.5); WHITE BLOOD COUNT 8.1 10^3/uL (4.3-11.0)
[2020-01-06 04:33] LABS: POTASSIUM 3.4 MMOL/L (3.6-5.0)
[2020-01-06 04:34] LABS: CALCIUM 8.4 MG/DL (8.5-10.1)
[2020-01-06 04:38] LABS: PHOSPHORUS 2.9 MG/DL (2.3-4.7)
[2020-01-06 04:39] LABS: CREATININE SERUM 1.01 MG/DL (0.60-1.30)
[2020-01-06 04:41] LABS: MAGNESIUM 1.5 MG/DL (1.6-2.4)
[2020-01-06 05:20] LABS: ATYPICAL LYMPHOCYTES 5 %; EOSINOPHILS % (MANUAL) 1 %; LYMPHOCYTES % (MANUAL) 10 %; MICROCYTOSIS SLIGHT; MONOCYTES % (MANUAL) 6 %; NEUTROPHILS % (MANUAL) 78 %
[2020-01-06] MEDS ORDERED: MAGNESIUM 1 GM/100 ML IVPB 200 ML IV ONE (06:20)
[2020-01-06] MEDS ORDERED: POTASSIUM CL 10MEQ/50ML IVPB 100 ML IV ONE (06:20)
[2020-01-06] MEDS: MAGNESIUM 1 GM/100 ML IVPB 100 ML IV SCH ×2 (06:28→07:31)
[2020-01-06] MEDS: POTASSIUM CL 10MEQ/50ML IVPB 50 ML IV SCH ×2 (06:28→07:32)
[2020-01-06] MEDS ORDERED: POTA10TA36 PO (06:45)
[2020-01-06] MEDS ORDERED: CHOL200074 PO (06:45)
[2020-01-06] MEDS ORDERED: OMEG-160 PO (06:45)
[2020-01-06] MEDS ORDERED: FURO-125 PO (06:45)
[2020-01-06] MEDS ORDERED: APIX2.5T PO (06:45)
[2020-01-06] MEDS ORDERED: DILT120C53 PO (07:38)
[2020-01-06] MEDS ORDERED: APIXABAN 2.5 MG (ELIQUIS) TABLET PO SCH (09:00)
[2020-01-06] MEDS: dilTIAZem DRIP PRE-MIX 125 ML IV SCH (09:39)
--- NOTE | 2020-01-06 09:55 | Diagnostic Imaging Report ---
INDICATION: Congestive heart failure, atrial fibrillation with rapid ventricular response. TECHNIQUE: Single view chest 3:46 AM. CORRELATION STUDY: 01/05/2020 FINDINGS: Unchanged cardiac enlargement. There is continued but improvement in the severity of pulmonary vascular congestion and edema. Interstitial markings also appears less congested. Small right and trace left pleural effusions. Atelectasis infiltrate or edema about both lung bases right greater than left overall improved. IMPRESSION: 1. Findings of congestive heart failure do persist but overall are improved from previous day's examination. Dictated by: Dictated on workstation # [id number]
--- NOTE | 2020-01-06 10:58 | History & Physical ---
History of Present Illness History of Present Illness Reason for visit/HPI This is a 79 year old female patient of Dr. 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 She reports that she has been having issues the last month with going in and out of atrial fibrillation as well as her rate. She presented to the emergency room with atrial fibrillation with RVR. She was given a cardizem bolus as well as amiodarone bolus and then started on a cardizem and amiodarone drips. She will be admitted to the ICU with cardiology consult. Date of Admission Jan 05, 2020 at 22:57 Date Seen by a Provider: Jan 06, 2020 Time Seen by a Provider: 10:53 I consulted on this patient on 01/06/20 10:52 Attending Physician Yuridia Meadows DO Admitting Physician Hyacinth Dela Cruz MD Consult Allergies and Home Medications Allergies Coded Allergies: No Known Drug Allergies (Unverified , 10/07/16) Home Medications Apixaban 2.5 Mg Tablet, 2.5 MG PO BID, (Reported) Cholecalciferol (Vitamin D3) 50 Mcg Capsule, 50 MCG PO HS, (Reported) Diltiazem HCl 120 Mg Cap.er.24h, 120 MG PO DAILY, (Reported) Furosemide 20 Mg Tablet, 20 MG PO NEEDED, (Reported) Levothyroxine Sodium 25 Mcg Tablet, 25 MCG PO DAILY, (Reported) [place]-3 Fatty Acids/Fish Oil 1 Each Capsule, 2 CAP PO DAILY, (Reported) [place]-3/Dha/Epa/Fish Oil 1 Each Capsule, 1 EACH PO HS, (Reported) Potassium Chloride 10 Meq Tab.er.prt, 10 MEQ PO NEEDED, (Reported) Patient Home Medication List Home Medication List Reviewed: Yes Past Dxefsdn-Jalnfr-Ssptkp Hx Past Med/Social Hx: Reviewed Nursing Past Med/Soc Hx Patient Social History Alcohol Use: Denies Use Recreational Drug Use: No Smoking Status: Never a Smoker 2nd Hand Smoke Exposure: No Recent Foreign Travel: No Contact w/other who traveled: No Recent Hopitalizations: No Recent Infectious Disease Expo: No Immunizations Up To Date Date of Influenza Vaccine: Mar 09, 2018 Seasonal Allergies Seasonal Allergies: No Past Medical History History of Blood Disorders: No Family History Hypertension Review of Systems Constitutional: weakness EENTM: No see HPI, No no symptoms reported, No ear discharge, No hearing loss, No ear pain, No blurred vision, No double vision, No eye pain, No tearing, No vision loss, No dental problems, No hoarseness, No mouth pain, No mouth swelling, No epistaxis, No nose congestion, No nose pain, No throat pain, No t hroat swelling, No other Respiratory: No no symptoms reported, No see HPI, No cough, No dyspnea on exertion, No hemoptysis, No orthopnea, No phlegm, No short of breath, No stridor, No wheezing, No other Cardiovascular: palpitations Gastrointestinal: No RUQ, No LUQ, No RLQ, No LLQ, No no symptoms reported, No see HPI, No abdominal pain, No constipation, No diarrhea, No dysphagia, No hematemesis, No heartburn, No jaundice, No loss of appetite, No melena, No nausea, No vomiting, No other Genitourinary: No no symptoms reported, No see HPI, No decreased output, No discharge, No dysuria, No frequency, No hematuria, No hesitancy, No incontinence, No nocturia, No pain, No other Musculoskeletal: No no symptoms reported, No see HPI, No back pain, No gout, No joint pain, No joint swelling, No muscle pain, No muscle stiffness, No muscle cramps, No muscle twitching, No muscle weakness, No neck pain, No other Skin: No no symptoms reported, No see HPI, No change in color, No change in hair/nails, No dryness, No hx of skin cancer, No lesions, No lumps, No pruritus, No rash, No other Psychiatric/Neurological: Denies No Symptoms Reported, Denies See HPI, Denies Anxiety, Denies Depressed, Denies Emotional Problems, Denies Headache, Denies Numbness, Denies Paresthesia, Denies Pre-Existing Deficit, Denies Seizure, Denies Tingling, Denies Tremors, Denies Weakness, Denies Other Physical Exam Vital Signs Vital Signs - First Documented 01/05/20 01/05/20 20:48 21:38 Temp 37.2 Pulse 181 Resp 19 B/P (MAP) 157/112 (127) Pulse Ox 92 O2 Delivery Room Air O2 Flow Rate 2.00 Capillary Refill : Less Than 3 Seconds Height, Weight, BMI Height: 5'0.00" Weight: 111lbs. 0.0oz. 50.864119gb; 21.61 BMI Method: General Appearance: No Apparent Distress HEENT: Normal ENT Inspection Neck: Non Tender, Supple Respiratory: Lungs Clear Cardiovascular: Regular Rate, Rhythm, Systolic Murmur Gastrointestinal: Normal Bowel Sounds, Non Tender, Soft Rectal: Deferred Back: No CVA Tenderness Extremity: Non Tender, No Calf Tenderness, Pedal Edema (ankles) Neurologic/Psychiatric: Alert, Oriented x3 Skin: Warm/Dry Assessment/Plan Assessment and Plan 1. Atrial Fibrillation with RVR--on amiodarone drip, off cardizem drip as has converted back to NSR, on eliquis 2. Hypokalemia/Hypomagnesemia--on replacement protocols Admission Diagnosis Admission Status: Inpatient Order (span 2 midnights) Reason for Inpatient Admission: Will need ICU admission for IV drips and possible cardioversion Clinical Quality Measures DVT/VTE Risk/Contraindication: Risk Factor Score Per Nursin RFS Level Per Nursing on Admit: 4+=Very High YURIDIA MEADOWS DO Jan 06, 2020 10:58
[2020-01-06] MEDS ORDERED: FLECAINIDE 100 MG (TAMBOCOR) TAB PO SCH (12:00)
--- NOTE | 2020-01-06 12:47 | NUR ---
OUTPT ORDER FOR EVENT MONITOR SIGNED BY DR STEWART, FAXED TO OUTPT SERVICES, AND RX GIVEN TO PT. PT INSTRUCTED TO CLAIM REVIEW MEDICAL DIRECTOR MONITOR ON WEDNESDAY.
[2020-01-06] MEDS ORDERED: MTP25TSR PO (13:47)
[2020-01-06] MEDS ORDERED: FLEC100T PO (13:47)
--- NOTE | 2020-01-06 14:23 | Consultation-Cardiology ---
HPI-Cardiology Cardiology Consultation: Date of Consultation 01/06/20 Date of Admission Attending Physician Yuridia Nicole DO Admitting Physician Hyacinth Dela Cruz MD Consulting Physician Caron STEWART MD HPI: Time Seen by a Provider: 11:00 Chief Complaint: Palpitations This is a 79-year-old lady who follows with Dr. Dela Cruz for primary care and Dr. Malin at [facility] for cardiology. She has history of persistent atrial fibrillation. Previous history of moderate to severe mitral stenosis. She presents with atrial fibrillation with RVR. She was given amiodarone as well as Cardizem bolus. Spontaneously converted overnight. She denies active smoking. Family history is positive for premature CAD. When I saw her this morning she had already converted to sinus rhythm. We discussed at length about her history. She's had off-and-on atrial fibrillation for at least 1-1/2 year. She has been on amiodarone for antiarrhythmic therapy however that was discontinued due to elevated LFTs. She has been on Eliquis regularly for more than a month. She denies any history of TIA or stroke. Blood pressure is well controlled. Review of Systems-Cardiology Review of Systems Constitutional: As described under HPI; No As described under HPI, No no symptoms reported, No chills, No fever, No lightheadedness Eyes: No As described under HPI, No no symptoms reported, No blindness, No blurred vision, No contact lenses, No drainage, No decreased acuity, No foreign body sensation, No pain, No vision change Ears/Nose/Throat: No As described under HPI, No no symptoms reported, No chronic hearing loss, No ear discharge, No ear pain, No nasal drainage, No ulcerations Respiratory: No no symptoms reported; As described under HPI; No As described under HPI, No cough, No orthopnea, No shortness of breath, No SOB with excertion Cardiovascular: No no symptoms reported; As described under HPI; No As described under HPI, No chest pain, No edema, No irregular heart rate, No lightheadedness; palpitations Gastrointestinal: No no symptoms reported, No As described under HPI, No abd omen distended, No abdominal pain, No blood streaked bowels, No constipation, No diarrhea, No nausea, No vomiting, No stool coloration changes Genitourinary: No As described under HPI, No burning, No dysuria, No discharge, No frequency, No flank pain, No hematuria, No urgency : Yes : No Skin: No rash, No skin related problems, No ulcerations Psychiatric/Neurological: No anxiety, No depression, No seizure, No focal weakness, No syncope Hematologic: No bleeding abnormalities [id number] Hx Patient Social History Alcohol Use: Denies Use Recreational Drug Use: No Smoking Status: Never a Smoker 2nd Hand Smoke Exposure: No Recent Foreign Travel: No Recent Infectious Disease Expo: No Hospitalization with Isolation: Denies Immunizations Up To Date Date of Influenza Vaccine: Mar 09, 2018 Past Medical History PMH As described under Assessment. Allergies and Home Medications Allergies Coded Allergies: No Known Drug Allergies (Unverified , 10/07/16) Home Medications Apixaban 2.5 Mg Tablet, 2.5 MG PO BID, (Reported) Cholecalciferol (Vitamin D3) 50 Mcg Capsule, 50 MCG PO HS, (Reported) Flecainide Acetate 100 Mg Tablet, 50 MG PO BID TAKE 1/2 OF 100MG TAB TWICE DAILY Prescribed by: PHONG LOCKE on 01/06/20 1347 Furosemide 20 Mg Tablet, 20 MG PO NEEDED, (Reported) Levothyroxine Sodium 25 Mcg Tablet, 25 MCG PO DAILY, (Reported) Metoprolol Succinate 25 Mg Tab.er.24h, 25 MG PO DAILY Prescribed by: PHONG LOCKE on 01/06/20 1347 [place]-3 Fatty Acids/Fish Oil 1 Each Capsule, 2 CAP PO DAILY, (Reported) [place]-3/Dha/Epa/Fish Oil 1 Each Capsule, 1 EACH PO HS, (Reported) Potassium Chloride 10 Meq Tab.er.prt, 10 MEQ PO NEEDED, (Reported) Patient Home Medication List Home Medication List Reviewed: Yes Physical Exam-Cardiology Physical Exam Vital Signs/I&O 01/06/20 01/06/20 01/06/20 01/06/20 02:30 03:00 03:30 04:00 Pulse 67 75 73 Resp 20 20 16 B/P (MAP) 116/78 (91) 107/78 (88) 107/72 (84) Pulse Ox 97 91 94 O2 Delivery Nasal Cannula Nasal Cannula Nasal Cannula Nasal Cannula O2 Flow Rate 5.00 5.00 5.00 3.00 01/06/20 01/06/20 01/06/20 01/06/20 04:00 04:00 05:00 06:00 Temp 36.5 Pulse 74 76 50 Resp 21 22 22 B/P (MAP) 111/77 (88) 99/60 (73) 96/64 (75) Pulse Ox 93 97 93 O2 Delivery Nasal Cannula Nasal Cannula Nasal Cannula O2 Flow Rate 5.00 3.00 3.00 01/06/20 01/06/20 01/06/20 01/06/20 07:00 07:07 07:36 08:00 Pulse 65 67 68 Resp 21 18 B/P (MAP) 107/59 (75) 108/57 (74) Pulse Ox 95 85 O2 Delivery Nasal Cannula Room Air Room Air O2 Flow Rate 3.00 01/06/20 01/06/20 01/06/20 01/06/20 08:41 08:47 09:00 10:00 Temp 36.7 Pulse 65 72 Resp 8 19 B/P (MAP) 118/64 (82) 117/60 (79) Pulse Ox 92 93 O2 Delivery Room Air Room Air Room Air O2 Flow Rate 01/06/20 01/06/20 01/06/20 01/06/20 11:00 11:18 12:00 13:00 Pulse 65 76 62 Resp 18 12 23 B/P (MAP) 118/60 (79) 135/64 (87) 107/73 (84) Pulse Ox 93 94 94 O2 Delivery Room Air Room Air Room Air Room Air O2 Flow Rate 01/06/20 01/06/20 13:08 14:00 Pulse 62 61 Resp 20 B/P (MAP) 122/68 (86) Pulse Ox 92 O2 Delivery Room Air 01/06/20 00:00 Intake Total 1000 ml Balance 1000 ml Capillary Refill : Less Than 3 Seconds Constitutional: appears stated age, AAO x 3; No apparent distress; well- developed, well-nourished HEENT: PERRL; No discharge; hearing is well preserved, oral hygience is good; No ulceration, No xanthelasmas are seen Neck: No carotid bruit; carotid pulses are 2 + bilaterally Respiratory: chest is bilaterally symmetric, lungs clear to auscultation Cardiovascular: regular rate-rhythm, S1 and S2 Gastrointestinal: soft, audible bowel sounds; No spleenomegaly Rectal: deferred Extremities: normal range of motion, non-tender, normal inspection, pedal edema (mild); No clubbing, No cyanosis, No significant edema Neurologic/Psychiatric: no motor/sensory deficits, alert, normal mood/affect, oriented x 3, power is 5/5 both on sides Skin: normal color, warm/dry; No rash, No ulcerations Data Review Labs Laboratory Tests 01/05/20 20:58: White Blood Count 9.1, Red Blood Count 3.99L, Hemoglobin 12.0, Hematocrit 37, Mean Corpuscular Volume 92, Mean Corpuscular Hemoglobin 30, Mean Corpuscular Hemoglobin Concent 33, Red Cell Distribution Width 14.6H, Platelet Count 234, Mean Platelet Volume 13.3H, Neutrophils (%) (Auto) 64, Lymphocytes (%) (Auto) 25, Monocytes (%) (Auto) 10, Eosinophils (%) (Auto) 1, Basophils (%) (Auto) 0, Neutrophils # (Auto) 5.8, Lymphocytes # (Auto) 2.3, Monocytes # (Auto) 0.9, Eosinophils # (Auto) 0.1, Basophils # (Auto) 0.0, Prothrombin Time 15.1H, INR Comment 1.2, Activated Partial Thromboplast Time 31, Sodium Level 137, Potassium Level 3.1L, Chloride Level 100, Carbon Dioxide Level 23, Anion Gap 14, Blood Urea Nitrogen 17, Creatinine 1.33H, Estimat Glomerular Filtration Rate 39, BUN/Creatinine Ratio 13, Glucose Level 146H, Calcium Level 9.2, Corrected Calcium 9.3, Magnesium Level 1.6, Total Bilirubin 0.4, Aspartate Amino Transf (AST/SGOT) 39H, Alanine Aminotransferase (ALT/SGPT) 95H, Alkaline Phosphatase 173H, Myoglobin 69.2, Troponin I < 0.028, C-Reactive Protein High Sensitivity 2.17H, B-Type Natriuretic Peptide 395.1H, Total Protein 7.4, Albumin 3.9, Thyroid Stimulating Hormone (TSH) 3.04, Free Thyroxine 1.29 01/06/20 03:25: White Blood Count 8.1, Red Blood Count 3.75L, Hemoglobin 11.3L, Hematocrit 35, Mean Corpuscular Volume 92, Mean Corpuscular Hemoglobin 30, Mean Corpuscular Hemoglobin Concent 33, Red Cell Distribution Width 14.6H, Platelet Count 188, Mean Platelet Volume 12.8H, Neutrophils (%) (Auto) 78H, Lymphocytes (%) (Auto) 14, Monocytes (%) (Auto) 8, Eosinophils (%) (Auto) 0, Basophils (%) (Auto) 0, Neutrophils # (Auto) 6.3, Lymphocytes # (Auto) 1.1, Monocytes # (Auto) 0.7, Eosinophils # (Auto) 0.0, Basophils # (Auto) 0.0, Sodium Level 137, Potassium Level 3.4L, Chloride Level 104, Carbon Dioxide Level 23, Anion Gap 10, Blood Urea Nitrogen 15, Creatinine 1.01, Estimat Glomerular Filtration Rate 53, BUN/Creatinine Ratio 15, Glucose Level 122H, Calcium Level 8.4L, Magnesium Level 1.5L, Neutrophils % (Manual) 78, Lymphocytes % (Manual) 10, Monocytes % (Manual) 6, Eosinophils % (Manual) 1, Atypical Lymphocytes 5, Microcytosis SLIGHT, Phosphorus Level 2.9, Triglycerides Level 63, Cholesterol Level 176, LDL Cholesterol Direct 115, VLDL Cholesterol 13, HDL Cholesterol 53 ECG Impression ECG Initial ECG Impression: Atrial Fibrillation w/RVR A/P-Cardiology Assessment/Admission Diagnosis Persistent atrial fibrillation with rapid ventricular rate, Moderate to severe mitral stenosis, Moderately dilated left atrium, Moderate pulmonary hypertension Plan Persistent atrial fibrillation with rapid ventricular rate, converted to sinus rhythm on amiodarone and Cardizem infusion. Change Cardizem to metoprolol succinate 25 mg daily. DC amiodarone. Patient previously had elevated LFTs with amiodarone. Patient had a stress test done in October 2018 which was normal. We gave her dose of flecainide this morning however I will not discharge and flecainide and only discharge on beta blockers. Event monitor for a month to assess burden of atrial fibrillation. Moderate to severe mitral stenosis, likely contribution being to persistent atrial fibrillation. Discussed briefly with the patient. She may require further evaluation of the mitral valve for possible surgery versus interventional therapy. We will decide when I see her in the office in 2-3 weeks. Moderately dilated left atrium, likely secondary to mitral stenosis and atrial fibrillation. Moderate pulmonary hypertension, secondary to mitral stenosis and atrial fibrillation. Echocardiogram done 01/06/2020 shows normal LV function with moderate to severe mitral stenosis. Moderately dilated left atrium and moderately elevated PA pressure. Patient has requested to follow-up in the office here in [place]. We will arrange for a follow-up in 2-3 weeks. Thank you for your consultation. Please call me if you have any questions. Tyrone Stewart MD, FACP, FACC, FSCAI, FHRS, CCDS Interventional Cardiology Cardiac Electrophysiology Vascular Medicine and Endovascular Interventions Clinical Quality Measures DVT/VTE Risk/Contraindication: Risk Factor Score Per Nursin RFS Level Per Nursing on Admit: 4+=Very High Caron STEWART MD Jan 06, 2020 14:22
--- NOTE | 2020-01-06 14:30 | NUR ---
VASHTINENITAASHLEE Fall demonstrates understanding of discharge instructions and accurately returns instructions upon questioning. Copy of Post-Discharge Instructions and Medication Discharge Instructions given to PT. VASHTICECILEASHLEE is not able to manage continuing needs after discharge. Patients belongings returned to PT. Skin dry and intact; no breakdown noted. Patient discharged from [facility]- on 01/06/20 at 1430. CARLEENASHLEE left floor via WC, accompanied by STAFF.
[2020-01-07] MEDS ORDERED: POTASSIUM CL 10MEQ/50ML IVPB 50 ML IV SCH (06:00)
[2020-01-07] MEDS ORDERED: MAGNESIUM 1 GM/100 ML IVPB 100 ML IV SCH (06:00)
[2020-01-07] MEDS ORDERED: KCL 20 MEQ TAB (K-DUR) PO SCH (06:00)
--- NOTE | 2020-01-08 07:57 | NUR ---
Received dietary consult for MST score. Note pt has been discharged at this time. Malcolm Cloud, MS, RD, LD
== END 2020-01-06 14:30 | disposition home or self-care (01) | DRG 310 ==
LOC: EDUNIT# 20:37 → ER 20:39 → ICU 22:57
PROVIDERS: ADMIT Family Medicine; ATTEND Family Medicine
DX: I48.19 Other persistent atrial fibrillation (principal); E87.6 Hypokalemia; E83.42 Hypomagnesemia; I27.20 Pulmonary hypertension, unspecified; I05.0 Rheumatic mitral stenosis
CPT/HCPCS: 36415; 71045; 80048; 80053; 80061; 83735; 83874; 83880; 84100; 84439; 84443; 84484; 85007; 85025; 85027; 85610; 85730; 86141; 87081; 93005; 93041

== ENCOUNTER 2020-01-09 14:10 | Outpatient (RCR) | payer MEDICARE, OTHER ==
[~2020-01-09 14:10] MED LIST changes: -AMIO200T4 PO; +AMIO200T6 PO; +APIX2.5T PO; +ASPI-1238 PO; -ASPI-983 PO; +CHOL200074 PO; +DILT120C53 PO; +FLEC100T PO; +FURO-125 PO; +OMEG-160 PO; +POTA10TA36 PO
[2020-02-19] MEDS ORDERED: MTP25TSR PO (07:33)
== END 2020-04-08 ==
LOC: CARD 14:10
PROVIDERS: ATTEND Internal Medicine Interventional Cardiology
DX: I48.0 Paroxysmal atrial fibrillation (principal)

== ENCOUNTER 2020-02-19 08:00 | Day surgery (SDC) | payer MEDICARE, OTHER ==
[~2020-02-19] VITALS: Ht 150 cm; Wt 49.0 kg
[2020-02-19] VITALS (11 sets, daily range): BP systolic 105–171; BP diastolic 46–88
[2020-02-19 07:30] LABS: HEMOGLOBIN 14.6 g/dL (11.5-16.0); WHITE BLOOD COUNT 5.5 10^3/uL (4.3-11.0)
[2020-02-19 07:42] LABS: INR 1.2 (0.8-1.4); PROTHROMBIN TIME PATIENT 15.3 SEC (12.2-14.7)
[2020-02-19 07:49] LABS: BILIRUBIN,TOTAL 0.8 MG/DL (0.1-1.0); CALCIUM 9.6 MG/DL (8.5-10.1); CREATININE SERUM 0.91 MG/DL (0.60-1.30); POTASSIUM 3.4 MMOL/L (3.6-5.0)
[~2020-02-19 08:00] MED LIST changes: +AMIO200T4 PO; -AMIO200T6 PO; +HEParin (CATH LAB) 2,000 ML IV ONE; +LIDOCAINE 1% INJ 20 ML 20 ML VIAL ONE; +NS IV 1000 ML 1,000 ML IV SCH; +NS IV 1000 ML 1,000 ML ONE
[2020-02-19] MEDS ORDERED: fentaNYL INJECTION 100 MCG/2 ML AMP ONE (08:22)
[2020-02-19] MEDS ORDERED: MIDAZOLAM 5 MG/5 ML (VERSED) VIAL ONE (08:22)
--- NOTE | 2020-02-19 09:05 | Cardiac Procedure Note-CS/ASA ---
Pre-Procedure Note Pre-Op Procedure Note H&P Reviewed The H&P was reviewed, patient examined and no changes noted. Date H&P Reviewed: Feb 19, 2020 Time H&P Reviewed: 08:30 Conscious Sedation Pre-Proced Time 08:30 ASA Score 3 For ASA 3 and 4: Consider anesthesia and medical clearance. Also, for patients with a history of failed moderate sedation consider anesthesia. Airway Lungs Heart ASA score ASA 1: a normal healthy patient ASA 2: a patient with a mild systemic disease (mid diabetes, controlled hypertension, obesity ASA 3: a patient with a severe systemic disease that limits activity (angina, COPD, prior Myocardial infarction) ASA 4: a patient with an incapacitating disease that is a constant threat to life (CHF, renal failure) ASA 5: a moribund patient not expected to survive 24 hrs. (ruptured aneurysm) ASA 6: a declared brain- patient whose organs are being harvested. For emergent operations, add the letter E after the classification Mallampati Classification Grade 1 Sedation Plan Analgesia, Amnesia, Plan communicated to team members, Discussed options with patient/fam, Discussed risks with patient/fam The patient is an appropriate candidate to undergo the planned procedure, sedation, and anesthesia. The patient immediately re-assessed prior to indication. Caron STEWART MD Feb 19, 2020 09:05
[2020-02-19] MEDS ORDERED: NS IV 1000 ML 1,000 ML IV SCH (09:08)
--- NOTE | 2020-02-19 09:08 | Coronary Angiography Report ---
Coronary Angiography Report DATE OF PROCEDURE: 02/19/20 INDICATION: Pre-mitral valve surgery PREOPERATIVE DIAGNOSIS: Pre-mitral valve surgery POSTOPERATIVE DIAGNOSIS: Patent epicardial coronary arteries. HISTORY: This is a 79-year-old lady with moderate to severe mitral stenosis with pulmonary hypertension. Undergoing evaluation for mitral valve surgery at [facility]. Coronary angiography is requested before cardiac surgery. PROCEDURES PERFORMED: 1.Coronary angiography. 2.Left heart catheterization. 3. Aortic arch angiogram, medical necessity: Precardiac surgery. COMPLICATIONS: None. SPECIMENS: None. ESTIMATED BLOOD LOSS: 10 mL ANESTHESIA: Conscious sedation ANTICOAGULATION: None. CONTRAST: 43 mL. FLUOROSCOPY: FLOUROSCOPY DOSE: 101 mgy. PROCEDURE DETAILS: The patient is a 79 female and was brought to the catheterization laboratory technician after informed consent was taken. All the risks and complications were explained in detail; this included the risk of bleeding, vascular damage, stroke, ID and even . The patient was draped and prepped in the usual sterile fashion. Access was gained in the right femoral artery with a 5 Belgian sheath. Coronary angiography, aortic arch angiogram and left heart catheterization was performed with JR4 and JL4 catheter. FINDINGS: 1.Left main: Patent. 2.LAD: Patent. 3.Left circumflex artery: Patent. 4.RCA: Patent. 5.Left heart catheterization: LV pressure 134/5 mmHg. LVEDP 14 mmHg. Aortic pressure 132/54 mmHg. Normal LV function with no wall motion abnormalities. No gradient across the aortic valve. 6. Aortic arch angiogram: No evidence of proximal aortic aneurysm or dissection. Patent proximal segments of the great arteries. CONCLUSIONS: Patent epicardial coronary arteries. Normal LV function with no wall motion abnormalities. Tyrone Vazquez MD, FACP, FACC, [facility] Interventional Cardiology Caron VAZQUEZ MD Feb 19, 2020 09:08
[2020-02-19] MEDS ORDERED: PATIENT MAY USE OWN MEDS, ALL PO SCH (09:15)
--- NOTE | 2020-02-19 10:28 | Discharge Inst-Post CATH ---
Discharge Inst-CATH/EP Problems Reviewed?: Yes Final Diagnosis Patent epicardial coronary arteries, moderate to severe mitral stenosis with pulmonary hypertension. Post Cardiac Cath/EP D/C Inst Follow Up/Plan Dr. Vazquez in 2-3 weeks. <b>CARDIAC CATH/EP PROCEDURE DISCHARGE INSTRUCTIONS</b> ACTIVITY * Go Home directly and rest. * Limit activity of the leg (or wrist if it was used) for 7 days including aerobics, swimming, jogging, bicycling, etc. * Restrict stair-climbing for 7 days if possible, if not, climb up with your non-cath leg, then bring together on the same step. * Avoid lifting, pushing, pulling or excessive movement of the affected extremity for 7 days. * Customary sexual activity may be resumed after 2 days-use caution not to use a position that strains or causes pain to the affected extremity. * No driving for 24 hours. * NO SMOKING. * Avoid straining for bowel movements for 7 days. * Gentle walking on level ground is allowed. * Returning to work will depend on the type of procedure and the results. Your doctor will discuss this with you. CALL YOUR DOCTOR FOR ANY OF THE FOLLOWING: *If bleeding from the puncture site occurs- Apply gentle pressure to site with clean cloth and call your doctor or EMS. * If a knot or lump forms under the skin, increases in size, or causes pain. * If bruising appears to be worsening or moving further down your leg instead of disappearing. * Temperature above 101 F. CARE OF YOUR GROIN INCISION; * Bruising or purple discoloration of the skin near the puncture site is common. * You may shower only, no bathtub bathing for 5 days. Be careful to avoid slipping as your leg may feel stiff. * If a closure device was used on your femoral artery, please see the attached guide regarding care of the device and your leg. * Leave dressing on FOR 24 hours. CARE OF YOUR WRIST INCISION; * Bruising or purple discoloration of the skin near the puncture site is common. * You may shower. * DO NOT submerge wrist. * Leave dressing on FOR 24 hours. Caron VAZQUEZ MD Feb 19, 2020 10:28
--- NOTE | 2020-02-19 10:40 | Cardiology Discharge Summary ---
Diagnosis/Chief Complaint Date of Admission 02/19/2020 Date of Discharge 02/19/2020 Admission Diagnosis Moderate to severe mitral valve stenosis, precardiac surgery Final/Discharge Diagnosis Moderate to severe mitral valve stenosis, precardiac surgery, patent epicardial coronary arteries. Chief Complaint/HPI Chief Complaint/HPI This is a 79-year-old lady with moderate to severe mitral stenosis with pulmonary hypertension. Undergoing evaluation for mitral valve surgery at [facility]. Coronary angiography is requested before cardiac surgery. Discharge Summary Procedures Coronary angiography shows patent epicardial coronary arteries. Normal LV function with no wall motion abnormalities. No gradient across the aortic valve. Discharge Physical Examination Normal. Hospital Course Was the Problem List Reviewed?: Yes Stable. Pending Labs Laboratory Tests 02/19/20 07:21: White Blood Count 5.5, Red Blood Count 4.83, Hemoglobin 14.6, Hematocrit 46, Mean Corpuscular Volume 96, Mean Corpuscular Hemoglobin 30, Mean Corpuscular Hemoglobin Concent 32, Red Cell Distribution Width 14.6, Platelet Count 231, Mean Platelet Volume 11.0, Prothrombin Time 15.3, INR Comment 1.2, Activated Partial Thromboplast Time 33, Sodium Level 137, Potassium Level 3.4, Chloride Level 99, Carbon Dioxide Level 27, Anion Gap 11, Blood Urea Nitrogen 13, Creatinine 0.91, Estimat Glomerular Filtration Rate 60, BUN/Creatinine Ratio 14, Glucose Level 96, Calcium Level 9.6, Corrected Calcium 9.6, Total Bilirubin 0.8, Aspartate Amino Transf (AST/SGOT) 32, Alanine Aminotransferase (ALT/SGPT) 34, Alkaline Phosphatase 117, Total Protein 8.0, Albumin 4.0 Discussion & Recommendations Discussion Discussed with the patient and family. Follow up appt.: Dr. Vazquez in a month or so. Dicharge Diet: Cardiac Diet Activity as Tolerated: Yes Home Medications Reviewed patient Home Medication Reconciliation performed by pharmacy medication reconciliations surveying technician and/or nursing. Patients Allergies have been reviewed. Discharge Home Medications: Reviewed and agree with Discharge Medication list on patient's Discharge Instruction sheet Condition at discharge Stable. Instructions to patient/family Dr. Vazquez in 2-3 weeks. Caron VAZQUEZ MD Feb 19, 2020 10:40
== END 2020-02-19 13:50 | disposition home or self-care (01) ==
LOC: CATH 08:00 → SDC 09:24 → CATH 13:50
PROVIDERS: ATTEND Internal Medicine Interventional Cardiology
DX: I34.2 Nonrheumatic mitral (valve) stenosis (principal); I27.20 Pulmonary hypertension, unspecified; I51.7 Cardiomegaly; E03.9 Hypothyroidism, unspecified; I48.19 Other persistent atrial fibrillation; Z82.49 Family history of ischemic heart disease and other diseases of the circulatory system; Z79.01 Long term (current) use of anticoagulants; Z79.899 Other long term (current) drug therapy; Z79.890 Hormone replacement therapy; I65.23 Occlusion and stenosis of bilateral carotid arteries; Z88.8 Allergy status to other drugs, medicaments and biological substances; Z11.2 Encounter for screening for other bacterial diseases
CPT/HCPCS: 36221; 80053; 85027; 85610; 85730; 87081; 93005; 93458; C1760; C1894; 36415

== ENCOUNTER → 2020-05-10 | Outpatient (CLI) | payer MEDICARE, OTHER ==
[~2020-05-10] MED LIST changes: -AMIO200T4 PO; +AMIO200T6 PO; -HEParin (CATH LAB) 2,000 ML IV ONE; -LIDOCAINE 1% INJ 20 ML 20 ML VIAL ONE; -NS IV 1000 ML 1,000 ML IV SCH; -NS IV 1000 ML 1,000 ML ONE
== END ==
LOC: CARD 13:00
PROVIDERS: ATTEND Internal Medicine Cardiovascular Disease
DX: I48.21 Permanent atrial fibrillation (principal)
CPT/HCPCS: 93225; 93226

== ENCOUNTER → 2020-05-28 | Outpatient (CLI) | payer MEDICARE, OTHER | LOC: RAD 14:49 | PROVIDERS: ATTEND Family Medicine | DX: I48.91 Unspecified atrial fibrillation (principal) | CPT/HCPCS: 93005 ==

== ENCOUNTER → 2021-09-11 | Outpatient (CLI) | payer MEDICARE, OTHER ==
[~2021-09-11] MED LIST changes: -AMIO200T6 PO; +AMIO200T65 PO; -POTA10TA36 PO; +POTA10TA37 PO
== END ==
LOC: CARD 11:00
PROVIDERS: ATTEND Family Medicine
DX: R00.0 Tachycardia, unspecified (principal)
CPT/HCPCS: 93005

== ENCOUNTER → 2021-10-03 | Outpatient (CLI) | payer MEDICARE, OTHER | LOC: CARD 10:56 | PROVIDERS: ATTEND Nurse Practitioner Family | DX: I48.19 Other persistent atrial fibrillation (principal) | CPT/HCPCS: 93005 ==

== ENCOUNTER → 2021-10-22 | Outpatient (CLI) | payer MEDICARE, OTHER ==
[2021-10-22 12:24] LABS: POTASSIUM 4.2 MMOL/L (3.6-5.0)
[2021-10-22 12:25] LABS: CALCIUM 9.2 MG/DL (8.5-10.1)
[2021-10-22 12:27] LABS: TOTAL PROTEIN 7.4 GM/DL (6.4-8.2)
[2021-10-22 12:28] LABS: BILIRUBIN,TOTAL 0.5 MG/DL (0.1-1.0)
[2021-10-22 12:30] LABS: CREATININE SERUM 1.24 MG/DL (0.60-1.30)
[2021-10-22 12:50] LABS: TSH (THYROID ANALYZER) 2.15 UIU/ML (0.35-4.94)
== END ==
LOC: LAB 11:44
PROVIDERS: ATTEND Internal Medicine Cardiovascular Disease
DX: I48.0 Paroxysmal atrial fibrillation (principal)
CPT/HCPCS: 36415; 80053; 84443

== ENCOUNTER → 2021-10-23 | Outpatient (CLI) | payer MEDICARE, OTHER ==
[~2021-10-23] MED LIST changes: +RT-ALBUTEROL SULF 2.5 MG/3 ML PRE-MIX VIAL INH ONE
--- NOTE | 2021-10-23 11:49 | Diagnostic Imaging Report ---
Indication: Arrhythmia PA and lateral chest Heart size and pulmonary vascularity are normal. Lungs are clear. There are no effusions or pneumothoraces. IMPRESSION: No acute abnormalities in the chest. Dictated by: Dictated on workstation # [id number]
== END ==
LOC: RT 10:45
PROVIDERS: ATTEND Internal Medicine Cardiovascular Disease
DX: I49.9 Cardiac arrhythmia, unspecified (principal)
CPT/HCPCS: 71046; 94060; 94726; 94729

== ENCOUNTER → 2021-11-17 | Outpatient (CLI) | payer MEDICARE, OTHER ==
[~2021-11-17] MED LIST changes: -RT-ALBUTEROL SULF 2.5 MG/3 ML PRE-MIX VIAL INH ONE
--- NOTE | 2021-11-17 16:06 | Diagnostic Imaging Report ---
PROCEDURE: US Thyroid. TECHNIQUE: Multiple real-time grayscale images were obtained of the thyroid in various projections. INDICATION: Thyroid nodule. FINDINGS: The right lobe measures 3 x 1.3 x 0.8 cm. Left lobe measures 3 x 1 x 1.1 cm. There is a heterogeneous well-circumscribed nodule in the mid portion of the left lobe measuring 8.5 x 7 mm. The isthmus shows multiple large nodules, largest is in the midline and is heterogeneous with considerable hypoechoic region and some isoechoic areas. This is well circumscribed. This measures approximately 3.7 x 1.8 x 3.7 cm. This is wider than tall. This does contain punctate calcification. IMPRESSION: Multinodular thyroid. Large nodule in the isthmus. This is of moderate concern. Ultrasound-guided biopsy is recommended. TI-RADS 4. Dictated by: Dictated on workstation # [id number]
== END ==
LOC: RAD 12:02
PROVIDERS: ATTEND Nurse Practitioner Family
DX: E04.2 Nontoxic multinodular goiter (principal)
CPT/HCPCS: 76536

== ENCOUNTER → 2021-11-26 | Outpatient (CLI) | payer MEDICARE, OTHER ==
[~2021-11-26] VITALS: Ht 152.4 cm; Wt 45.0 kg
[~2021-11-26] MED LIST changes: +LIDOCAINE 1% INJ 20 ML VIAL INJ ONE
--- NOTE | 2021-11-26 13:58 | Diagnostic Imaging Report ---
INDICATION: Thyroid nodule. Patient presents for ultrasound-guided fine-needle aspiration and Rotex biopsy. FINDINGS: The patient was brought to the procedure room and placed on the table in the supine position. Ultrasound imaging over the neck was performed to evaluate for an appropriate entry site. The midline neck was prepped and draped in the usual sterile fashion. A small amount of 1% lidocaine was utilized for local anesthesia. Four passes were made into the dominant solid mass in the isthmus of the thyroid utilizing 25-gauge needles and fine-needle aspiration technique. A single pass was made with a Rotex needle and a Rotex biopsy was performed. Hemostasis was obtained. The patient tolerated the procedure well and left the Department in stable condition. IMPRESSION: Successful ultrasound-guided fine-needle aspiration and Rotex biopsy of the dominant isthmus thyroid nodule. Pathology results are currently pending. Dictated by: Dictated on workstation # [id number]
== END ==
LOC: RAD 12:36
PROVIDERS: ATTEND Family Medicine
DX: E04.1 Nontoxic single thyroid nodule (principal)
CPT/HCPCS: 10005

== ENCOUNTER → 2021-12-11 | Outpatient (CLI) | payer MEDICARE, OTHER ==
[~2021-12-11] MED LIST changes: -LIDOCAINE 1% INJ 20 ML VIAL INJ ONE
== END ==
LOC: CARD 14:00
PROVIDERS: ATTEND Internal Medicine Cardiovascular Disease
DX: I08.3 Combined rheumatic disorders of mitral, aortic and tricuspid valves (principal)
CPT/HCPCS: 93306

== ENCOUNTER → 2022-06-09 | Outpatient (CLI) | payer MEDICARE, OTHER ==
[~2022-06-09] MED LIST changes: +POTA-177 PO; -POTA10TA37 PO
--- NOTE | 2022-06-09 18:45 | Diagnostic Imaging Report ---
INDICATION: Knee pain TECHNIQUE: 3 views of the right knee CORRELATION STUDY: None FINDINGS: No acute bony abnormality. There is however significant joint space narrowing in the medial compartment with slight loss of the normal smooth cortical margins, particularly of the medial femoral condyle. Lateral compartment demonstrates minimal narrowing. Narrowing of the patellofemoral compartment with a spur-like formation. Small suprapatellar joint effusion. IMPRESSION: 1. Negative for acute bony abnormality of the knee. Moderately advanced multi-compartmental degenerative changes of the knee. Joint effusion. Dictated by: Dictated on workstation # [id number]
--- NOTE | 2022-06-09 18:46 | Diagnostic Imaging Report ---
Indication: Back pain extending into the legs. Time of Exam: 5:12 PM AP, lateral and coned lumbosacral views of the lumbar spine were obtained. There is anterolisthesis of L5 on S1. There is minimal retrolisthesis of L2 on L3 and L1 on L2. Multilevel degenerative disc disease is noted with variable disc space narrowing and marginal spurring, greatest at L1-L2 and L5-S1 levels. There appear to be pars defects at the L5-S1 level. No acute compression fracture is identified. 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 No acute bony abnormality is detected. Dictated by: Dictated on workstation # [id number]
== END ==
LOC: RAD 16:50
PROVIDERS: ATTEND Nurse Practitioner Family
DX: M17.11 Unilateral primary osteoarthritis, right knee (principal); M47.816 Spondylosis without myelopathy or radiculopathy, lumbar region; M43.16 Spondylolisthesis, lumbar region
CPT/HCPCS: 72100; 73562

== ENCOUNTER 2022-10-07 10:46 | Emergency (ER) | payer MEDICARE, OTHER ==
[~2022-10-07] VITALS: Ht 149 cm; Wt 45.0 kg
--- NOTE | 2022-10-07 11:12 | ED Respiratory ---
General Chief Complaint: Respiratory Problems Stated Complaint: SOB | Nursing Triage Note: PT AMB TO RM 7 PT CO OF SOA SINCE AUGUST, PT STATES HAS SL SWELLING OF L LOWER EXT. PT STATES HAS FLU AND PNEM IN AUGUST, HAS NOT FELT GOOD SINCE. Source: patient Exam Limitations: no limitations History of Present Illness Date Seen by Provider: October 07, 2022 Time Seen by Provider: 11:10 Initial Comments Patient is a 82-year-old female with a history of A-fib currently on Plavix who presents to the ED for shortness of breath bilateral lower leg swelling. She states she was diagnosed with pneumonia in mid August. She was given 2 rounds of antibiotics, steroids with some improvement of her cough and shortness of breath. She states over the past few days she has noted increased shortness of breath. Appears to be worse when she lies down. She reports a cough when she lies down. She knows bilateral lower ankle swelling worse on the left. She sees a rodent control worker at . She contacted her rodent control worker who recommend to start taking a diuretic which she has taken 2 days worth. She currently takes triamterene hydrochlorothiazide. She denies fever, chills, vomiting, chest pain, abdominal pain, diarrhea, headache, dizziness, visual changes. She does report frequent urination. Allergies and Home Medications Allergies Coded Allergies: Pmjmlub-Guv-Tos Reductase Inhibitor (Verified Allergy, Unknown, 02/19/20) Patient Home Medication List Home Medication List Reviewed: Yes Apixaban (Eliquis) 2.5 Mg Tablet, 2.5 MG PO BID, (Reported) Entered as Reported by: ISAMAR MASTERSON on 01/06/20 0645 Furosemide (Lasix) 20 Mg Tablet, 20 MG PO NEEDED, (Reported) Entered as Reported by: ISAMAR MASTERSON on 01/06/20 0645 Furosemide (Lasix) 20 Mg Tablet, 20 MG PO DAILY Prescribed by: NETTIE CRANDALL on 10/07/22 1307 Levothyroxine Sodium (Levothyroxine Sodium) 25 Mcg Tablet, 25 MCG PO MONWEDFRI, (Reported) Entered as Reported by: JOSEP CONTRERAS on 08/18/18 1620 Metoprolol Succinate (Metoprolol Succinate) 25 Mg Tab.er.24h, 25 MG PO BID, (Reported) Entered as Reported by: BARRY HAMM on 02/19/20 0733 [place]-3 Fatty Acids/Fish Oil (Fish Oil 1,200 mg Softgel) 1 Each Capsule, 2 CAP PO DAILY, (Reported) Entered as Reported by: JOSEP CONTRERAS on 08/18/18 1620 Ada-3/Dha/Epa/Fish Oil (Fish Oil 1,000 mg Softgel) 1 Each Capsule, 1 EACH PO HS, (Reported) Entered as Reported by: ISAMAR MASTERSON on 01/06/20 0645 Review of Systems Review of Systems Constitutional: No chills, No diaphoresis, No malaise, No weakness EENTM: No ear pain, No blurred vision, No double vision Respiratory: cough; No dyspnea on exertion; short of breath Cardiovascular: No chest pain Gastrointestinal: No abdominal pain, No nausea, No vomiting Genitourinary: No dysuria, No frequency Musculoskeletal: No back pain, No joint pain Skin: No change in color, No change in hair/nails All Other Systems Reviewed Negative Unless Noted: Yes Past Cgsrdtb-Fmjhlu-Qiqlvs Hx Seasonal Allergies Seasonal Allergies: No Past Medical History Surgeries: Yes (NECK ) Section Respiratory: No Currently Using CPAP: No Currently Using BIPAP: No Cardiac: Yes Hypertension, Valvular Heart Disease Neurological: No Genitourinary: No Gastrointestinal: No Musculoskeletal: No Endocrine: Yes HEENT: No Cancer: No Psychosocial: No Integumentary: No Blood Disorders: No Family Medical History Hypertension Physical Exam Vital Signs - First Documented 10/07/22 11:00 Temp 36.7 Pulse 103 Resp 31 B/P (MAP) 194/117 (142) Pulse Ox 97 O2 Delivery Room Air Capillary Refill : Less Than 3 Seconds Height: 5'0.00" Weight: 111lbs. 0.0oz. 50.823536kq; 20.00 BMI Method: General Appearance: no apparent distress Eyes: Bilateral Eye EOMI HEENT: PERRL/EOMI, normal ENT inspection, TMs normal, pharynx normal Neck: non-tender, full range of motion, supple, normal inspection Respiratory: chest non-tender, lungs clear, normal breath sounds, no res piratory distress, no accessory muscle use Cardiovascular: no edema, no gallop, no JVD, tachycardia Gastrointestinal: normal bowel sounds, non tender, soft, no organomegaly, no pulsatile mass Extremities: normal range of motion, non-tender, normal inspection, no pedal edema Neurologic/Psychiatric: child care worker II-XII nml as tested, no motor/sensory deficits, alert, normal mood/affect Skin: normal color Progress/Results/Core Measures Suspected Sepsis SIRS Temperature: Pulse: 103 Respiratory Rate: 31 Laboratory Tests 10/07/22 11:15: White Blood Count 9.6 Blood Pressure 194 /117 Mean: 142 Laboratory Tests 10/07/22 11:15: Creatinine 1.00, INR Comment 1.2, Platelet Count 273, Total Bilirubin 0.6 Results/Orders Lab Results Laboratory Tests Test 10/07/22 11:15 Range/Units White Blood Count 9.6 4.3-11.0 10^3/uL Red Blood Count 4.62 3.80-5.11 10^6/uL Hemoglobin 13.8 11.5-16.0 g/dL Hematocrit 42 35-52 % Mean Corpuscular Volume 91 80-99 fL Mean Corpuscular Hemoglobin 30 25-34 pg Mean Corpuscular Hemoglobin Concent 33 32-36 g/dL Red Cell Distribution Width 15.0 H 10.0-14.5 % Platelet Count 273 130-400 10^3/uL Mean Platelet Volume 11.6 9.0-12.2 fL Immature Granulocyte % (Auto) 0 % Neutrophils (%) (Auto) 83 H 42-75 % Lymphocytes (%) (Auto) 8 L 12-44 % Monocytes (%) (Auto) 9 0-12 % Eosinophils (%) (Auto) 0 0-10 % Basophils (%) (Auto) 0 0-10 % Neutrophils # (Auto) 8.0 H 1.8-7.8 10^3/uL Lymphocytes # (Auto) 0.7 L 1.0-4.0 10^3/uL Monocytes # (Auto) 0.8 0.0-1.0 10^3/uL Eosinophils # (Auto) 0.0 0.0-0.3 10^3/uL Basophils # (Auto) 0.0 0.0-0.1 10^3/uL Immature Granulocyte # (Auto) 0.0 0.0-0.1 10^3/uL Prothrombin Time 15.7 H 12.2-14.7 SEC INR Comment 1.2 0.8-1.4 Activated Partial Thromboplast Time 22 L 24-35 SEC D-Dimer 0.64 H 0.00-0.49 UG/ML Sodium Level 135 135-145 MMOL/L Potassium Level 4.0 3.6-5.0 MMOL/L Chloride Level 104 98-107 MMOL/L Carbon Dioxide Level 20 L 21-32 MMOL/L Anion Gap 11 5-14 MMOL/L Blood Urea Nitrogen 17 7-18 MG/DL Creatinine 1.00 0.60-1.30 MG/DL Estimat Glomerular Filtration Rate 57 BUN/Creatinine Ratio 17 Glucose Level 125 H 70-105 MG/DL Calcium Level 8.7 8.5-10.1 MG/DL Corrected Calcium 9.2 8.5-10.1 MG/DL Magnesium Level 2.1 1.6-2.4 MG/DL Total Bilirubin 0.6 0.1-1.0 MG/DL Aspartate Amino Transf (AST/SGOT) 30 5-34 U/L Alanine Aminotransferase (ALT/SGPT) 33 0-55 U/L Alkaline Phosphatase 92 40-136 U/L Myoglobin 53.3 10.0-92.0 NG/ML Troponin I < 0.028 <0.028 NG/ML B-Type Natriuretic Peptide 298.0 H <100.0 PG/ML Total Protein 6.6 6.4-8.2 GM/DL Albumin 3.4 3.2-4.5 GM/DL Lipase 27 8-78 U/L My Orders Orders - ASHELY GARCIA PA Cbc With Automated Diff (10/07/22 11:09) Magnesium (10/07/22 11:09) Chest 1 View, Ap/Pa Only (10/07/22 11:09) Ekg Tracing (10/07/22 11:09) Comprehensive Metabolic Panel (10/07/22 11:09) Myoglobin Serum (10/07/22 11:09) Protime With Inr (10/07/22 11:09) Partial Thromboplastin Time (10/07/22 11:09) Ed Iv/Invasive Line Start (10/07/22 11:09) Lipase (10/07/22 11:09) Bnp [place] (10/07/22 11:09) Troponin I Fidelia (10/07/22 11:09) Fibrin Degradation Products (10/07/22 11:13) Ct Angio Chest W (R/O Pe) (10/07/22 11:54) Iohexol Injection (Omnipaque 350 Mg/Ml 1 (10/07/22 12:15) Received Contrast (Hold Metformin- Contr (10/07/22 12:15) Ns (Ivpb) (Sodium Chloride 0.9% Ivpb Bag (10/07/22 12:15) Furosemide Injection (Lasix Injection) (10/08/22 09:00) Furosemide Injection (Lasix Injection) (10/07/22 13:19) Medications Given in ED Current Medications Medications Dose Ordered Sig/Ivelisse Route Start Time Stop Time Status Last Admin Dose Admin Iohexol 100 ml ONCE ONCE IV 10/07/22 12:15 10/07/22 12:16 DC 10/07/22 12:30 48 ML Sodium Chloride 100 ml ONCE ONCE IV 10/07/22 12:15 10/07/22 12:16 DC 10/07/22 12:31 80 ML Vital Signs/I&O 10/07/22 10/07/22 11:00 13:30 Temp 36.7 36.7 Pulse 103 93 Resp 31 18 B/P (MAP) 194/117 (142) 136/65 Pulse Ox 97 96 O2 Delivery Room Air Room Air Capillary Refill : Less Than 3 Seconds Blood Pressure Mean: 142 ECG Comment Atrial fibrillation, incomplete right bundle branch block, 93 bpm, QRS duration 112 MS, QTc 435 MS Departure Communication (PCP) Reviewed previous ER visits, H&P, lab testing. History of mitral valve stenosis, persistent A-fib who presents to the ED for shortness of breath. Diagnosed with pneumonia in mid August. Patient Was on 2 rounds of antibiotics and steroids. No history of COPD or asthma. She denies of any specific chest pain but does report shortness of breath worse with lying down with a dry cough with lying down. She noted some swelling bilateral ankles over the past few days. On exam she does have mild peripheral edema bilateral. Lung sounds clear bilateral. She is not hypoxic. Heart rate between 80 to 100 bpm. Does not appear to be on a rate control medication. Denies any fever. General lab work, cardiac work-up was not initiated. CBC grossly unremarkable. CMP grossly unremarkable besides BNP of 298. Normal troponin. Chest x-ray concerning for pleural effusion versus atelectasis versus pneumonia. She did have a slight elevated D-dimer 0.60. She is currently on Plavix. CT angio of the chest was ordered to rule out PE which was negative for PE. There is mild pleural effusion, greater on the right with subjacent atelectasis noted. No evidence of pneumonia. Multi nodule goiter. Further evaluation needed. Patient was given 20 mg of IV Lasix. She did start taking her triamterene hydrochlorothiazide two doses today and yesterday which she has taken in the past for peripheral edema. Last time she has taken the medication was 3 years ago patient was hypertensive on arrival but recheck showed 136/65. Concerning for underlying CHF. No history of pulmonary hypertension, mitral valve stenosis. she states she has been evaluated for valve replacement but there was no plan at this time. Patient has been in contact today with her rodent control worker at [facility] who recommended sending the results from today to their rodent control worker. Heart rate appears to be controlled. She did not receive any IV fluids. recommend contacting your rodent control worker for further evaluation. Further evaluation likely warranted. Will discharge with Lasix 20 mg for the next week. Discussed sodium restriction. If worsening shortness of breath, peripheral edema to return back to ED. Further cardiac evaluation is needed. Do not feel patient necessarily needs admission at this time. Impression Primary Impression: CHF (congestive heart failure) Additional Impression: Hypertension Disposition: 01 HOME, SELF-CARE Condition: Stable Departure-Patient Inst. Decision time for Depature: 13:03 Referrals: BARRY WINTERS MD (PCP/Family) Primary Care Physician Patient Instructions: CHF Add. Discharge Instructions: Need to follow-up with your rodent control worker for further evaluation. Follow-up with your primary care physician next 2 to 3 days for reevaluation. take your medication as prescribed. If blood pressure is below 120 systolic do not take your blood pressure medication. If any worsening swelling, shortness of breath return back to ED. All discharge instructions reviewed with patient and/or family. Voiced understanding. Scripts Furosemide (Lasix) 20 Mg Tablet 20 MG PO DAILY for 8 Days, #8 TAB Prov: ASHELY GARCIA 10/07/22 ASHELY GARCIA October 07, 2022 11:12
[2022-10-07 11:31] LABS: BASOPHILS % (AUTO) 0 % (0-10); EOSINOPHILS % (AUTO) 0 % (0-10); HEMATOCRIT 42 % (35-52); HEMOGLOBIN 13.8 g/dL (11.5-16.0); LYMPHOCYTES # (AUTO) 0.7 10^3/uL (1.0-4.0); LYMPHOCYTES % (AUTO) 8 % (12-44); MEAN CORPUSCULAR HEMOGLOBIN 30 pg (25-34); MEAN CORPUSCULAR HGB CONC 33 g/dL (32-36); MEAN CORPUSCULAR VOLUME 91 fL (80-99); MEAN PLATELET VOLUME 11.6 fL (9.0-12.2); MONOCYTES # (AUTO) 0.8 10^3/uL (0.0-1.0); MONOCYTES % (AUTO) 9 % (0-12); NEUTROPHILS % (AUTO) 83 % (42-75); PLATELET COUNT 273 10^3/uL (130-400); WHITE BLOOD COUNT 9.6 10^3/uL (4.3-11.0)
[2022-10-07 11:39] LABS: INR 1.2 (0.8-1.4); PROTHROMBIN TIME PATIENT 15.7 SEC (12.2-14.7)
[2022-10-07 11:41] LABS: ALBUMIN 3.4 GM/DL (3.2-4.5)
[2022-10-07 11:42] LABS: CALCIUM 8.7 MG/DL (8.5-10.1)
[2022-10-07 11:43] LABS: TOTAL PROTEIN 6.6 GM/DL (6.4-8.2)
[2022-10-07 11:50] LABS: MAGNESIUM 2.1 MG/DL (1.6-2.4)
[2022-10-07] MEDS ORDERED: NS 100 ML (IVPB) BAG IV ONE (12:15)
[2022-10-07] MEDS ORDERED: HOLD METFORMIN - RECEIVED CONTRAST 20 ML VIAL IV SCH (12:15)
[2022-10-07] MEDS ORDERED: IOHEXOL 350 MG/ML 100 ML (OMNIPAQUE 350) VIAL IV ONE (12:15)
--- NOTE | 2022-10-07 12:25 | Diagnostic Imaging Report ---
INDICATION: Chest pain, shortness of breath. TECHNIQUE/COMPARISON: A frontal chest was obtained at 11:46 AM and compared to 10/23/2021. FINDINGS: There is cardiomegaly. There is mild central vascular congestion. There is some new infiltrate in the right base with a small right pleural effusion. There is no pneumothorax. IMPRESSION: Cardiomegaly with some central vascular congestion. There is new infiltrate versus atelectasis in the right base with a small right pleural effusion. Dictated by: Dictated on workstation # [id number]
[2022-10-07 12:41] LABS: BILIRUBIN,TOTAL 0.6 MG/DL (0.1-1.0)
--- NOTE | 2022-10-07 12:44 | Diagnostic Imaging Report ---
Indication: Dyspnea and lower extremity swelling There is good opacification of pulmonary arteries. No filling defect is seen to indicate embolism. Thoracic aorta is not well opacified but appears to be of normal caliber. There is coronary artery calcification. Mild pleural fluid is seen, greater on the right with mild subjacent atelectasis. Note is made of pectus excavatum and heterogeneous enlargement of the thyroid gland. IMPRESSION: No CTA evidence of pulmonary embolism. There is mild pleural effusion, greater on the right with subjacent atelectasis noted. Incidental findings include coronary artery disease and probable multinodular goiter. Dictated by: Dictated on workstation # [id number]
[2022-10-07] MEDS ORDERED: FURO-125 PO ×2 (13:07→16:57)
[2022-10-07] MEDS ORDERED: FUROSEMIDE 40 MG/4 ML INJ (LASIX) ONE (13:19)
[2022-10-07 13:30] VITALS: BP 136/65
[2022-10-08] MEDS ORDERED: FUROSEMIDE 40 MG/4 ML INJ (LASIX) IVP SCH (09:00)
== END 2022-10-07 13:35 | disposition home or self-care (01) ==
LOC: EDUNIT# 10:46 → ER 10:49
DX: I11.0 Hypertensive heart disease with heart failure (principal); I50.9 Heart failure, unspecified; J90 Pleural effusion, not elsewhere classified; I48.91 Unspecified atrial fibrillation; Z79.02 Long term (current) use of antithrombotics/antiplatelets; Z79.899 Other long term (current) drug therapy
CPT/HCPCS: 36415; 71045; 71275; 80053; 83690; 83735; 83874; 83880; 84484; 85025; 85379; 85610; 85730; 93005

== ENCOUNTER → 2022-11-04 | Outpatient (CLI) | payer MEDICARE, OTHER | LOC: ORTHO 10:47 | PROVIDERS: ATTEND Orthopaedic Surgery | DX: M17.11 Unilateral primary osteoarthritis, right knee (principal) | CPT/HCPCS: 20610; G0463; 99203 ==

== ENCOUNTER → 2022-12-03 | Outpatient (CLI) | payer MEDICARE, OTHER | LOC: ORTHO 11:29 | PROVIDERS: ATTEND Orthopaedic Surgery | DX: M17.11 Unilateral primary osteoarthritis, right knee (principal) | CPT/HCPCS: 20610; G0463; 99213 ==

== ENCOUNTER 2023-01-11 11:26 | Emergency (ER) | payer MEDICARE, OTHER ==
--- NOTE | 2023-01-11 12:44 | ED Trauma-Multisystem ---
General Chief Complaint: Trauma-Non Activation Stated Complaint: FALL | MID-BACK PAIN Nursing Triage Note: PT AMB TO TRIAGE WITH C/O FALL YESTERDAY AFTERNOON. PT C/O BACK PAIN AND R ARM ABRASION. PT DENIES HITTING HEAD OR LOC Source of Information: Patient Exam Limitations: No Limitations History of Present Illness Date Seen by Provider: Jan 11, 2023 Time Seen by Provider: 12:35 Initial Comments 82-year-old male presents to the ER with complaint of right upper back pain and right hip pain after a fall which occurred yesterday evening. She states she is uncertain how she fell, denies dizziness prior to the fall. Denies hitting her head. Denies loss of consciousness. She also has an abrasion to her right arm. Currently her blood pressure is significantly elevated, she denies headache, dizziness, blurry vision. Allergies and Home Medications Allergies Coded Allergies: Rywplki-Zwk-Uyn Reductase Inhibitor (Verified Allergy, Unknown, 02/19/20) Patient Home Medication List Home Medication List Reviewed: Yes Apixaban (Eliquis) 2.5 Mg Tablet, 2.5 MG PO BID, (Reported) Entered as Reported by: ISAMAR MASTERSON on 01/06/20 0645 Furosemide (Lasix) 20 Mg Tablet, 20 MG PO NEEDED, (Reported) Entered as Reported by: ISAMAR MASTERSON on 01/06/20 0645 Furosemide (Lasix) 20 Mg Tablet, 20 MG PO DAILY Prescribed by: NETTIE CRANDALL on 10/07/22 1657 Levothyroxine Sodium (Levothyroxine Sodium) 25 Mcg Tablet, 25 MCG PO MONWEDFRI, (Reported) Entered as Reported by: JOSEP CONTRERAS on 08/18/18 1620 Metoprolol Succinate (Metoprolol Succinate) 25 Mg Tab.er.24h, 25 MG PO BID, (Reported) Entered as Reported by: BARRY HAMM on 02/19/20 0733 [place]-3 Fatty Acids/Fish Oil (Fish Oil 1,200 mg Softgel) 1 Each Capsule, 2 CAP PO DAILY, (Reported) Entered as Reported by: JOSEP CONTRERAS on 08/18/18 1620 [place]-3/Dha/Epa/Fish Oil (Fish Oil 1,000 mg Softgel) 1 Each Capsule, 1 EACH PO HS, (Reported) Entered as Reported by: ISAMAR MASTERSON on 01/06/20 0645 Review of Systems Review of Systems Constitutional: see HPI Past Iniipmv-Qgskcp-Apheiz Hx Patient Social History Tobacco Use?: No Use of E-Cig and/or Vaping dev: No Substance use?: No Alcohol Use?: No Pt feels they are or have been: No Immunizations Up To Date First/Initial COVID19 Vaccinat: YES Second COVID19 Vaccination Evin: YES Third COVID19 Vaccination Date: YES Seasonal Allergies Seasonal Allergies: No Past Medical History Surgery/Hospitalization HX: A-FIB, ELEVATED CHOLESTEROL, CAROTID, C-SECTIONS.HTN Surgeries: Yes (NECK ) Section Respiratory: No Currently Using CPAP: No Currently Using BIPAP: No Cardiac: Yes Hypertension, Valvular Heart Disease Neurological: No Genitourinary: No Gastrointestinal: No Musculoskeletal: No Endocrine: Yes HEENT: No Cancer: No Psychosocial: No Integumentary: No Blood Disorders: No Family Medical History Hypertension Physical Exam Vital Signs Vital Signs - First Documented 01/11/23 11:51 Temp 36.8 Pulse 71 Resp 16 B/P (MAP) 201/84 (123) Pulse Ox 98 O2 Delivery Room Air Height, Weight, BMI Height: 5'0.00" Weight: 111lbs. 0.0oz. 50.985684vk; 20.00 BMI Method: General Appearance: No Apparent Distress, WD/WN Head: No Evidence of Injury Eyes: Bilateral Eye Normal Inspection Ears, Nose, Throat: Hearing Grossly Normal Neck: Normal Inspection, Supple Cardiovascular: Regular Rate, Rhythm Respiratory: Lungs Clear, Normal Breath Sounds, No Accessory Muscle Use, No Respiratory Distress Back: No Vertebral Tenderness, Other (Tenderness over right posterior upper ribs) Extremity: Normal Inspection, Normal Range of Motion Neurologic/Psychiatric: Alert, Normal Mood/Affect Skin: Normal Color, Warm/Dry Progress/Results/Core Measures Results/Orders My Orders Orders - MASON ENRIQUEZ INTERNATIONAL MANAGER Ribs, Right 2-3 Views (01/11/23 12:41) Pelvis With Right Hip 2-3views (01/11/23 12:41) Acetaminophen Tablet (Acetaminophen Ta (01/11/23 12:45) Medications Given in ED Current Medications Medications Dose Ordered Sig/Ivelisse Route Start Time Stop Time Status Last Admin Dose Admin Acetaminophen 1,000 mg ONCE ONCE PO 01/11/23 12:45 01/11/23 12:46 DC 01/11/23 12:49 1,000 MG Vital Signs/I&O 01/11/23 11:51 Temp 36.8 Pulse 71 Resp 16 B/P (MAP) 201/84 (123) Pulse Ox 98 O2 Delivery Room Air Blood Pressure Mean: 123 Progress Progress Note : Progress Note Patient seen and evaluated, resting comfortably in bed, no acute distress. Based on exam and symptoms, x-ray of right hip with pelvis and right ribs ordered. Tylenol ordered for pain. Patient declined muscle relaxer. 1357 x-rays reviewed. Hip x-ray negative for acute fracture. Rib x-ray negative for fracture. Results discussed with patient. Patient's blood pressure has improved. Patient states her pain has improved as well. Discharge instructions and return precautions provided. Diagnostic Imaging Diagonstic Imaging: Xray Plain Films/CT/US/NM/MRI: pelvis, hip Comments INDICATION: Right hip pain COMPARISON: None available. TECHNIQUE: AP pelvis with AP and lateral views of the hip. FINDINGS: Alignment is normal. There is no acute fracture. SI joints and symphysis pubis are normal. A moderate amount stool is present in the right hemicolon. IMPRESSION: No acute fracture about the right hip. Dictated by: Dictated on workstation # [id number] Dict: 01/11/23 1338 Trans: 01/11/23 1343 [facility] [id number] Interpreted by: CHELSEY BUSTAMANTE MD Electronically signed by: CHELSEY BUSTAMANTE MD 01/11/23 1348 Diagonstic Imaging: Xray Plain Films/CT/US/NM/MRI: other (rib) Comments [facility] [place] NAME: ASHLEE DURANT [facility] REC#: [id number] PT STATUS: REG ER : 1940 PHYSICIAN: MASON ENRIQUEZ APRN ADMIT DATE: 01/11/23/ER Signed Date of Exam:01/11/23 RIBS, RIGHT 2-3 VIEWS RIBS, RIGHT 2-3 VIEWS INDICATION: Right-sided rib pain COMPARISON: None available. TECHNIQUE: Chest radiograph of 10/07/2022 FINDINGS: No right-sided pleural effusion or pneumothorax. Right lung is clear. No displaced fracture within the right ribs. IMPRESSION: No right-sided rib fracture. Dictated by: Dictated on workstation # [id number] Dict: 01/11/23 1335 Trans: 01/11/23 1336 [facility] [id number] Interpreted by: CHELSEY BUSTAMANTE MD Electronically signed by: CHELSEY BUSTAMANTE MD 01/11/23 1336 Departure Impression Primary Impression: Fall Qualified Codes: W19.XXXA - Unspecified fall, initial encounter Additional Impressions: Rib pain Hip pain Qualified Codes: M25.551 - Pain in right hip Disposition: 01 HOME, SELF-CARE Condition: Stable Departure-Patient Inst. Decision time for Depature: 13:56 Referrals: BARRY WINTERS MD (PCP/Family) Primary Care Physician Patient Instructions: RIB CONTUSION Add. Discharge Instructions: You may take 1000 mg of Tylenol every 8 hours as needed for pain. You may try ice or heat whichever feels better. You may apply topical pain reliever. Return for any new, concerning, or worsening symptoms. All discharge instructions reviewed with patient and/or family. Voiced understanding. MASON ENRIQUEZ APRN Jan 11, 2023 12:44
[2023-01-11] MEDS ORDERED: ACETAMINOPHEN 500 MG TABLET PO ONE (12:45)
--- NOTE | 2023-01-11 13:38 | Diagnostic Imaging Report ---
RIBS, RIGHT 2-3 VIEWS INDICATION: Right-sided rib pain COMPARISON: None available. TECHNIQUE: Chest radiograph of 10/07/2022 FINDINGS: No right-sided pleural effusion or pneumothorax. Right lung is clear. No displaced fracture within the right ribs. IMPRESSION: No right-sided rib fracture. Dictated by: Dictated on workstation # [id number]
--- NOTE | 2023-01-11 13:45 | Diagnostic Imaging Report ---
PELVIS WITH RIGHT HIP 2-3VIEWS INDICATION: Right hip pain COMPARISON: None available. TECHNIQUE: AP pelvis with AP and lateral views of the hip. FINDINGS: Alignment is normal. There is no acute fracture. SI joints and symphysis pubis are normal. A moderate amount stool is present in the right hemicolon. IMPRESSION: No acute fracture about the right hip. Dictated by: Dictated on workstation # [id number]
[2023-01-11 14:04] VITALS: BP 160/63
== END 2023-01-11 14:06 | disposition home or self-care (01) ==
LOC: EDUNIT# 11:26 → ER 11:28
DX: M25.551 Pain in right hip (principal); R07.81 Pleurodynia; M54.6 Pain in thoracic spine; W18.30XA Fall on same level, unspecified, initial encounter
CPT/HCPCS: 71100

== ENCOUNTER → 2023-01-13 | Outpatient (CLI) | payer MEDICARE, OTHER ==
--- NOTE | 2023-01-13 16:56 | Diagnostic Imaging Report ---
EXAMINATION: Lumbosacral spine 2 or 3 views. HISTORY: Back pain and injury. COMPARISON: 06/09/2022. FINDINGS: Large amount of stool is present in the abdomen. There is anterolisthesis of L5 on S1, unchanged. Retrolisthesis of L2 on L3 is unchanged. There is a new age indeterminate mild L1 compression fracture. IMPRESSION: New mild L1 compression fracture. Dictated by: Dictated on workstation # [id number]
--- NOTE | 2023-01-13 17:08 | Diagnostic Imaging Report ---
EXAMINATION: Thoracic spine radiograph TECHNIQUE: AP and lateral views of the thoracic spine obtained. HISTORY: PAIN COMPARISON: None available. FINDINGS: exaggerated kyphosis of the thoracic spine. No fracture is seen. Joint spaces are normal. IMPRESSION: 1. No fracture. Dictated by: Dictated on workstation # [id number]
== END ==
LOC: RAD 11:41
PROVIDERS: ATTEND Nurse Practitioner Family
DX: S32.019A Unspecified fracture of first lumbar vertebra, initial encounter for closed fracture (principal); X58.XXXA Exposure to other specified factors, initial encounter
CPT/HCPCS: 72072; 72100

== ENCOUNTER → 2023-01-28 | Outpatient (CLI) | payer MEDICARE, OTHER ==
--- NOTE | 2023-01-28 17:34 | Diagnostic Imaging Report ---
PROCEDURE: MRI lumbar spine without contrast. TECHNIQUE: Multiplanar, multisequence MRI of the lumbar spine was performed without contrast. INDICATION: Fall. Back pain. Possible compression fracture L1. COMPARISON: 01/13/2023. FINDINGS: 5 lumbar type vertebral bodies are visualized with the last well-formed disc space designated L5-S1. No acute fracture or dislocation is seen in the lumbar spine. There is grade 2 anterolisthesis of L5 on S1. There is grade 1 retrolisthesis of L2 on L3. Modic type I endplate degenerative changes are present at the L1-L2 level. Scattered Schmorl's nodes are seen. There is an indeterminate lesion within the S2 level. The conus terminates at the L1 level. No masses are seen associated with the conus or nerve roots of the cauda equina. No epidural collections are identified. Multilevel degenerative changes are seen in the lumbar spine with disc bulges, facet hypertrophy, and buckling of the ligamentum flavum. T12-L1: Broad-based disc bulge, facet hypertrophy, and buckling of ligamentum flavum results in moderate to severe spinal canal stenosis and mild bilateral foraminal narrowing. L1-L2: Broad-based disc bulge, facet hypertrophy, and buckling of ligamentum flavum results in mild to moderate spinal canal narrowing and mild to moderate bilateral foraminal narrowing. L2-L3: Broad-based disc bulge and facet hypertrophy results in mild spinal canal narrowing and moderate right and moderate to severe left foraminal stenosis. L3-L4: Broad-based disc bulge, facet hypertrophy, and buckling of ligamentum flavum results in mild spinal canal narrowing and moderate bilateral foraminal stenosis. L4-L5: Broad-based disc bulge, facet hypertrophy, and buckling of the ligamentum flavum results in mild to moderate spinal canal narrowing and moderate bilateral foraminal stenosis. L5-S1: Broad-based disc bulge, facet hypertrophy, and buckling of the ligamentum flavum results in mild spinal canal narrowing and severe bilateral foraminal stenosis. Paravertebral soft tissues are unremarkable. IMPRESSION: 1. No acute fracture or dislocation in the lumbar spine. 2. Multilevel degenerative changes in the lumbar spine, greatest at T12-L1 and L5-S1. 3. Grade 2 anterolisthesis of L5 on S1 and grade 1 retrolisthesis of L2 on L3. 4. Modic type II endplate degenerative changes at the L1-L2 level. 5. Indeterminate osseous lesion in the S2 level. Recommend postcontrast images of the lumbar spine/pelvis to further evaluate in correlation with patient history. Dictated by: Dictated on workstation # [id number]
== END ==
LOC: RAD 13:44
PROVIDERS: ATTEND Family Medicine
DX: M47.817 Spondylosis without myelopathy or radiculopathy, lumbosacral region (principal); M47.895 Other spondylosis, thoracolumbar region; S32.010D Wedge compression fracture of first lumbar vertebra, subsequent encounter for fracture with routine healing; M43.16 Spondylolisthesis, lumbar region; M43.17 Spondylolisthesis, lumbosacral region; M47.816 Spondylosis without myelopathy or radiculopathy, lumbar region
CPT/HCPCS: 72148

== ENCOUNTER → 2023-03-10 | Outpatient (CLI) | payer MEDICARE, OTHER | LOC: CARD 13:36 | PROVIDERS: ATTEND Internal Medicine Cardiovascular Disease | DX: I08.1 Rheumatic disorders of both mitral and tricuspid valves (principal) | CPT/HCPCS: 93306 ==

== ENCOUNTER → 2023-03-12 | Outpatient (CLI) | payer MEDICARE, OTHER ==
[~2023-03-12] MED LIST changes: +GADOTERATE 0.5 MMOL/ML (CLARISCAN) 15 ML VIAL IV ONE; +GADOTERATE 0.5 MMOL/ML (CLARISCAN) 20 ML VIAL IV ONE
--- NOTE | 2023-03-12 18:00 | Diagnostic Imaging Report ---
INDICATION: Abnormality seen within the sacrum on recent lumbar spine MRI. EXAMINATION: Pelvis MRI with and without contrast 03/12/2023. COMPARISON: Correlation is made to an MRI of the lumbar spine from 02/17/2023. FINDINGS: The previously described lesion is once again noted within the region of the S2 level. This is fairly well-circumscribed and is diffusely T2 hyperintense and T1 hypointense. It measures 1.6 x 1.5 x 1.4 cm. No adjacent soft tissue component is appreciated. No definite osseous destruction is seen. Post contrast imaging demonstrates no associated enhancement. The remaining visualized osseous structures are unremarkable for an acute process. The visualized sacroiliac joints are unremarkable. The visualized intrapelvic structures are unremarkable as well. IMPRESSION: Well-circumscribed lesion along the midline at the S2 level. This is nonspecific with no associated enhancement. A hemangioma is a possibility. Nonetheless, CT is recommended for further characterization. Dictated by: Dictated on workstation # [id number]
== END ==
LOC: RAD 13:56
PROVIDERS: ATTEND Orthopaedic Surgery Orthopaedic Surgery of the Spine
DX: M53.3 Sacrococcygeal disorders, not elsewhere classified (principal)
CPT/HCPCS: 72197